=== PATIENT | male | born 1940 | race Caucasian/White ===

== ENCOUNTER 2018-01-03 19:13 | Inpatient (IN) | payer MEDICARE, BC ==
[~2018-01-03] VITALS: Ht 172.7 cm; Wt 85.2 kg
[~2018-01-03 19:13] MED LIST: ALLO100T PO; ASPI-1265 PO; ATOR80TA PO; CITA20TA11 PO; CLOP75TA35 PO; FLO0.4C PO; FURO40TA4 PO; GLIM1TAB46 PO; ISOS30TA6 PO; LABE300T PO; LOSA50TA3 PO; MULT-785 PO; NITR0.4T51 SL; OMEG1CAP13 PO; OMEG1CAP54 PO; PANT40TA4 PO
[2018-01-03] MEDS ORDERED: GLIM1TAB46 PO (20:01)
[2018-01-03] MEDS ORDERED: CITA40TA11 PO (20:01)
[2018-01-03] MEDS ORDERED: ISOS30TA6 PO (20:01)
[2018-01-03] MEDS ORDERED: dextrose 5%-1/2 normal saline 1,000 ML IV ONE (20:32)
[2018-01-03 20:43] LABS: BASOPHILS % (AUTO) 0.1 % (0-1); EOSINOPHILS % (AUTO) 0.3 % (0-6); HEMATOCRIT 32.9 % (42.0-52.0); HEMOGLOBIN 10.9 g/dl (14.0-17.9); LYMPHOCYTES # (AUTO) 0.4 X10'3 (1.1-4.8); LYMPHOCYTES % (AUTO) 2.5 % (21-51); MEAN CORPUSCULAR HGB CONC 33.1 % (33.0-36.5); MEAN CORPUSCULAR VOLUME 102.7 FL (78-98); MEAN PLATELET VOLUME 8.6 FL (7.4-10.4); MONOCYTES # (AUTO) 0.8 X10'3 (0-0.9); MONOCYTES % (AUTO) 4.7 % (2-12); NEUTROPHILS # (AUTO) 15.5 X10'3 (1.8-7.7); NEUTROPHILS % (AUTO) 92.4 % (42-75); PLATELET COUNT 173 X10'3 (140-440); RED BLOOD COUNT 3.21 X10'6 (4.70-6.10); RED CELL DISTRIBUTION WIDTH 14.9 % (11.5-14.5); WHITE BLOOD COUNT 16.8 X10'3 (4.5-11.0)
[2018-01-03 20:51] LABS: INR 1.2 INR; PARTIAL THROMBOPLASTIN TIME 33 SECONDS (22-32); PROTHROMBIN TIME 11.9 SECONDS (9.0-12.0)
[2018-01-03 21:05] LABS: ALANINE AMINOTRANSFERASE 23 U/L (12-78); ALBUMIN 2.5 G/DL (3.4-5.0); ALBUMIN/GLOBULIN RATIO 0.6 (1.1-1.5); ALKALINE PHOSPHATASE 88 IU/L (46-116); ANION GAP 8 (8-16); ASPARTATE AMINO TRANSFERASE 39 U/L (10-37); BILIRUBIN,TOTAL 0.6 MG/DL (0.1-1.0); BLOOD UREA NITROGEN 27 MG/DL (7-18); BUN/CREATININE RATIO 7.8 (5.4-32.0); CALCIUM 8.8 MG/DL (8.5-10.1); CHLORIDE 100 MMOL/L (99-107); CREATININE 3.45 MG/DL (0.60-1.10); GLUCOSE 173 MG/DL (70-104); MAGNESIUM 1.7 MG/DL (1.5-2.4); PHOSPHORUS 1.9 MG/DL (2.3-4.5); POTASSIUM 3.6 MMOL/L (3.5-5.1); SODIUM 140 MMOL/L (135-145); TOTAL CARBON DIOXIDE 32.3 MMOL/L (24-32); TOTAL PROTEIN 6.5 G/DL (6.4-8.2); eGFR 17 ML/MIN
[2018-01-03] MEDS ORDERED: acetaminophen 325mg tablet PO ONE (21:10)
[2018-01-04] VITALS (7 sets, daily range): BP systolic 111–130; BP diastolic 53–74
[2018-01-04] MEDS ORDERED: glucagon, human recombinant 1mg kit SUBCUT PRN (01:55)
[2018-01-04] MEDS ORDERED: MESSAGE TO PHARMACY PO ONE (01:55)
[2018-01-04] MEDS ORDERED: dextrose ORAL solution 15 GM/59 ML bottle PO PRN ×2 (01:55)
[2018-01-04] MEDS ORDERED: dextrose 50%-water 50ml dispensing syringe IV PRN ×2 (01:55)
[2018-01-04] MEDS ORDERED: insulin Lispro (HumaLOG) vial - multi-dose SQ SCH (01:55)
[2018-01-04] MEDS ORDERED: ceftazidime 1000mg in D5W 50ml 50 ML IV ONE (02:46)
[2018-01-04] MEDS ORDERED: cefTAZidime inj. 1 GM in normal saline 100ml IV soln 100 ML IV ONE (03:30)
[2018-01-04] MEDS ORDERED: vancomycin/NS 1 GM ADD-VANTAGE 250 ML IV ONE (03:30)
[2018-01-04 05:22] LABS: BASOPHILS % (AUTO) 0 % (0-1); EOSINOPHILS # (AUTO) 0.2 X10'3 (0-0.9); EOSINOPHILS % (AUTO) 1.3 % (0-6); HEMATOCRIT 29.4 % (42.0-52.0); HEMOGLOBIN 9.9 g/dl (14.0-17.9); LYMPHOCYTES % (AUTO) 7.4 % (21-51); MEAN CORPUSCULAR HEMOGLOBIN 33.9 PG (27.0-31.0); MEAN CORPUSCULAR HGB CONC 33.7 % (33.0-36.5); MEAN CORPUSCULAR VOLUME 100.4 FL (78-98); MEAN PLATELET VOLUME 8.5 FL (7.4-10.4); MONOCYTES # (AUTO) 1.1 X10'3 (0-0.9); MONOCYTES % (AUTO) 8.4 % (2-12); NEUTROPHILS # (AUTO) 10.8 X10'3 (1.8-7.7); NEUTROPHILS % (AUTO) 82.9 % (42-75); PLATELET COUNT 173 X10'3 (140-440); RED BLOOD COUNT 2.93 X10'6 (4.70-6.10); RED CELL DISTRIBUTION WIDTH 14.9 % (11.5-14.5)
[2018-01-04 05:45] LABS: INR 1.1 INR; PARTIAL THROMBOPLASTIN TIME 37 SECONDS (22-32); PROTHROMBIN TIME 11.8 SECONDS (9.0-12.0)
[2018-01-04 05:57] LABS: ALANINE AMINOTRANSFERASE 37 U/L (12-78); ALBUMIN 2.3 G/DL (3.4-5.0); ALBUMIN/GLOBULIN RATIO 0.6 (1.1-1.5); ALKALINE PHOSPHATASE 101 IU/L (46-116); ANION GAP 11 (8-16); ASPARTATE AMINO TRANSFERASE 184 U/L (10-37); BILIRUBIN,TOTAL 0.6 MG/DL (0.1-1.0); BLOOD UREA NITROGEN 34 MG/DL (7-18); CALCIUM 8.7 MG/DL (8.5-10.1); CHLORIDE 100 MMOL/L (99-107); CREATININE 4.24 MG/DL (0.60-1.10); GLUCOSE 172 MG/DL (70-104); MAGNESIUM 1.9 MG/DL (1.5-2.4); POTASSIUM 4.2 MMOL/L (3.5-5.1); SODIUM 143 MMOL/L (135-145); TOTAL CARBON DIOXIDE 32.2 MMOL/L (24-32); TOTAL PROTEIN 6.3 G/DL (6.4-8.2); eGFR 14 ML/MIN
[2018-01-04 06:39] LABS: HEMOGLOBIN A1C 5.3 % (4.5-6.2)
[2018-01-04] MEDS: clopidogrel 75mg tablet PO SCH (07:30)
[2018-01-04] MEDS: multivitamins, therapeutics tablet PO SCH (07:30)
[2018-01-04] MEDS: citalopram 20mg tablet PO SCH (07:31)
[2018-01-04] MEDS: isosorbide mononitrate 30mg tab.SR.24H PO SCH ×2 (07:31→07:37)
[2018-01-04] MEDS: atorvastatin 20mg tablet PO SCH (07:31)
[2018-01-04] MEDS: heparin, porcine 5000 units/ml vial SQ SCH ×2 (07:32→20:42)
[2018-01-04] MEDS: OMEGA-3/DHA/EPA/FISH OIL 1 EACH CAPSULE.DR PO SCH (08:00)
[2018-01-04] MEDS: aspirin 81mg tab.chew PO SCH (08:18)
[2018-01-04] MEDS ORDERED: acetaminophen 325mg tablet PO PRN (20:55)
[2018-01-04] MEDS ORDERED: insulin glargine (Lantus) pen - multi-dose SQ SCH (21:00)
[2018-01-04] MEDS ORDERED: allopurinol 100mg tablet PO SCH (21:00)
[2018-01-04] MEDS ORDERED: tamsulosin 0.4mg capsule PO SCH (21:00)
[2018-01-04] MEDS ORDERED: OMEGA-3/DHA/EPA/FISH OIL 1 EACH CAPSULE.DR PO SCH (21:00)
[2018-01-05 03:00] VITALS: BP 103/59
[2018-01-05 06:00] VITALS: BP 101/56
[2018-01-05 06:38] LABS: BASOPHILS % (AUTO) 0.2 % (0-1); EOSINOPHILS # (AUTO) 0.2 X10'3 (0-0.9); EOSINOPHILS % (AUTO) 1.4 % (0-6); HEMATOCRIT 30.2 % (42.0-52.0); HEMOGLOBIN 10.3 g/dl (14.0-17.9); LYMPHOCYTES % (AUTO) 8.5 % (21-51); MEAN CORPUSCULAR HEMOGLOBIN 34.7 PG (27.0-31.0); MEAN CORPUSCULAR HGB CONC 34.1 % (33.0-36.5); MEAN PLATELET VOLUME 9.1 FL (7.4-10.4); MONOCYTES # (AUTO) 0.9 X10'3 (0-0.9); MONOCYTES % (AUTO) 7.4 % (2-12); NEUTROPHILS # (AUTO) 10.1 X10'3 (1.8-7.7); NEUTROPHILS % (AUTO) 82.5 % (42-75); PLATELET COUNT 176 X10'3 (140-440); RED BLOOD COUNT 2.96 X10'6 (4.70-6.10); RED CELL DISTRIBUTION WIDTH 14.9 % (11.5-14.5); WHITE BLOOD COUNT 12.2 X10'3 (4.5-11.0)
[2018-01-05 06:53] LABS: INR 1.1 INR; PARTIAL THROMBOPLASTIN TIME 37 SECONDS (22-32); PROTHROMBIN TIME 10.9 SECONDS (9.0-12.0)
[2018-01-05 07:05] LABS: ALANINE AMINOTRANSFERASE 56 U/L (12-78); ALBUMIN 2.2 G/DL (3.4-5.0); ALBUMIN/GLOBULIN RATIO 0.6 (1.1-1.5); ALKALINE PHOSPHATASE 88 IU/L (46-116); ANION GAP 10 (8-16); ASPARTATE AMINO TRANSFERASE 191 U/L (10-37); BILIRUBIN,TOTAL 0.6 MG/DL (0.1-1.0); BLOOD UREA NITROGEN 58 MG/DL (7-18); BUN/CREATININE RATIO 10.4 (5.4-32.0); CALCIUM 8.6 MG/DL (8.5-10.1); CHLORIDE 100 MMOL/L (99-107); CREATININE 5.59 MG/DL (0.60-1.10); GLUCOSE 178 MG/DL (70-104); MAGNESIUM 1.9 MG/DL (1.5-2.4); POTASSIUM 3.8 MMOL/L (3.5-5.1); SODIUM 140 MMOL/L (135-145); TOTAL CARBON DIOXIDE 29.6 MMOL/L (24-32); TOTAL PROTEIN 6.2 G/DL (6.4-8.2); eGFR 10 ML/MIN
[2018-01-05] MEDS: heparin, porcine 5000 units/ml vial SQ SCH (07:28)
[2018-01-05] MEDS: citalopram 20mg tablet PO SCH (07:28)
[2018-01-05] MEDS: clopidogrel 75mg tablet PO SCH (07:29)
[2018-01-05] MEDS: aspirin 81mg tab.chew PO SCH (07:30)
[2018-01-05] MEDS: isosorbide mononitrate 30mg tab.SR.24H PO SCH (07:30)
[2018-01-05] MEDS: atorvastatin 20mg tablet PO SCH (07:30)
[2018-01-05] MEDS: multivitamins, therapeutics tablet PO SCH (07:30)
[2018-01-05] MEDS: OMEGA-3/DHA/EPA/FISH OIL 1 EACH CAPSULE.DR PO SCH (07:31)
[2018-01-05] MEDS ORDERED: cefTAZidime inj. 1 GM in normal saline 100ml IV soln 100 ML IV SCH (08:00)
[2018-01-05] MEDS ORDERED: LEVO500T2 PO (09:03)
== END 2018-01-05 11:45 | disposition home or self-care (01) | DRG 871 ==
LOC: ER 19:14 → ED HOLD 20:23 → EDBEDREQ 01-04 00:04 → PCU 3S 01-04 00:35
PROVIDERS: ADMIT Internal Medicine Critical Care Medicine; ATTEND Internal Medicine Critical Care Medicine
DX: A41.9 Sepsis, unspecified organism (principal); J18.1 Lobar pneumonia, unspecified organism; J96.01 Acute respiratory failure with hypoxia; I12.0 Hypertensive chronic kidney disease with stage 5 chronic kidney disease or end stage renal disease; E11.22 Type 2 diabetes mellitus with diabetic chronic kidney disease; E11.649 Type 2 diabetes mellitus with hypoglycemia without coma; N18.6 End stage renal disease; I25.10 Atherosclerotic heart disease of native coronary artery without angina pectoris; N18.9 Chronic kidney disease, unspecified; F32.9 Major depressive disorder, single episode, unspecified; Z86.73 Personal history of transient ischemic attack (TIA), and cerebral infarction without residual deficits; Z99.2 Dependence on renal dialysis; Z87.891 Personal history of nicotine dependence; Z79.82 Long term (current) use of aspirin; Z79.84 Long term (current) use of oral hypoglycemic drugs; Z79.899 Other long term (current) drug therapy; Z88.8 Allergy status to other drugs, medicaments and biological substances; Z90.49 Acquired absence of other specified parts of digestive tract
CPT/HCPCS: 36415; 71045; 80053; 82948; 83036; 83605; 83735; 83880; 84100; 84145; 84443; 85025; 85610; 85730; 87040; 87070; 87502; 87503; 93005; 99285; J0713; J1644; J1815; J3370; J7030

== ENCOUNTER 2018-01-26 09:34 | Emergency (ER) | payer MEDICARE, BC ==
[~2018-01-26] VITALS: Ht 160 cm; Wt 86.0 kg
[~2018-01-26 09:34] MED LIST changes: -CITA20TA11 PO; +CITA40TA11 PO; -FURO40TA4 PO; -LABE300T PO; -LOSA50TA3 PO; -NITR0.4T51 SL; -PANT40TA4 PO
[2018-01-26 10:41] LABS: BASOPHILS % (AUTO) 0.2 % (0-1); EOSINOPHILS # (AUTO) 0.3 X10'3 (0-0.9); EOSINOPHILS % (AUTO) 2.7 % (0-6); LYMPHOCYTES # (AUTO) 0.9 X10'3 (1.1-4.8); LYMPHOCYTES % (AUTO) 8.7 % (21-51); MEAN CORPUSCULAR HEMOGLOBIN 34.5 PG (27.0-31.0); MEAN CORPUSCULAR HGB CONC 33.4 % (33.0-36.5); MEAN CORPUSCULAR VOLUME 103.3 FL (78-98); MEAN PLATELET VOLUME 9.1 FL (7.4-10.4); MONOCYTES # (AUTO) 0.7 X10'3 (0-0.9); MONOCYTES % (AUTO) 6.9 % (2-12); NEUTROPHILS # (AUTO) 8.4 X10'3 (1.8-7.7); NEUTROPHILS % (AUTO) 81.5 % (42-75); PLATELET COUNT 222 X10'3 (140-440); RED BLOOD COUNT 3.48 X10'6 (4.70-6.10); RED CELL DISTRIBUTION WIDTH 15.2 % (11.5-14.5); WHITE BLOOD COUNT 10.3 X10'3 (4.5-11.0)
[2018-01-26 10:55] LABS: INR 1.1 INR; PARTIAL THROMBOPLASTIN TIME 26 SECONDS (22-32); PROTHROMBIN TIME 11.1 SECONDS (9.0-12.0)
[2018-01-26 11:04] LABS: ALANINE AMINOTRANSFERASE 30 U/L (12-78); ALBUMIN 3.1 G/DL (3.4-5.0); ALBUMIN/GLOBULIN RATIO 0.8 (1.1-1.5); ALKALINE PHOSPHATASE 125 IU/L (46-116); ANION GAP 9 (8-16); ASPARTATE AMINO TRANSFERASE 26 U/L (10-37); BILIRUBIN,TOTAL 1.1 MG/DL (0.1-1.0); BLOOD UREA NITROGEN 31 MG/DL (7-18); BUN/CREATININE RATIO 6.8 (5.4-32.0); CALCIUM 9.1 MG/DL (8.5-10.1); CHLORIDE 104 MMOL/L (99-107); CREATININE 4.56 MG/DL (0.60-1.10); GLUCOSE 198 MG/DL (70-104); POTASSIUM 3.7 MMOL/L (3.5-5.1); SODIUM 142 MMOL/L (135-145); TOTAL CARBON DIOXIDE 28.9 MMOL/L (24-32); TOTAL PROTEIN 7.2 G/DL (6.4-8.2); eGFR 13 ML/MIN
[2018-01-26] MEDS ORDERED: levoFLOXACIN 750MG TABLET PO ONE (12:20)
[2018-01-26] MEDS ORDERED: LEVO500T89 PO (14:09)
[2018-01-26 14:21] VITALS: BP 143/80
== END 2018-01-26 14:25 | disposition home or self-care (01) ==
LOC: ER 09:34
DX: J18.9 Pneumonia, unspecified organism (principal); I12.0 Hypertensive chronic kidney disease with stage 5 chronic kidney disease or end stage renal disease; E11.22 Type 2 diabetes mellitus with diabetic chronic kidney disease; N18.6 End stage renal disease; I25.10 Atherosclerotic heart disease of native coronary artery without angina pectoris; R00.0 Tachycardia, unspecified; Z90.49 Acquired absence of other specified parts of digestive tract; Z99.2 Dependence on renal dialysis; Z79.82 Long term (current) use of aspirin; Z88.8 Allergy status to other drugs, medicaments and biological substances; Z86.73 Personal history of transient ischemic attack (TIA), and cerebral infarction without residual deficits
CPT/HCPCS: 36415; 71045; 71250; 78582; 80053; 83605; 83880; 84484; 85025; 85379; 85610; 85730; 87040; 93005; 99285; A9539; A9540

== ENCOUNTER 2018-01-29 20:10 | Inpatient (IN) | payer MEDICARE, BC ==
[~2018-01-29] VITALS: Ht 162.6 cm; Wt 86.4 kg
[~2018-01-29 20:10] MED LIST changes: -ISOS30TA6 PO; +LEVO500T89 PO
[2018-01-29] MEDS ORDERED: dextrose 50%-water 50ml dispensing syringe IV ONE ×2 (20:50→23:00)
[2018-01-29] MEDS ORDERED: ondansetron/PF 4mg/2ml inj IV ONE (21:00)
[2018-01-29 21:42] LABS: INR 1.1 INR; PROTHROMBIN TIME 10.9 SECONDS (9.0-12.0)
[2018-01-29 21:58] LABS: ALANINE AMINOTRANSFERASE 26 U/L (12-78); ALBUMIN 2.9 G/DL (3.4-5.0); ALBUMIN/GLOBULIN RATIO 0.7 (1.1-1.5); ALKALINE PHOSPHATASE 111 IU/L (46-116); ANION GAP 11 (8-16); ASPARTATE AMINO TRANSFERASE 35 U/L (10-37); BILIRUBIN,TOTAL 0.4 MG/DL (0.1-1.0); BLOOD UREA NITROGEN 25 MG/DL (7-18); CALCIUM 8.9 MG/DL (8.5-10.1); CHLORIDE 102 MMOL/L (99-107); CREATININE 2.77 MG/DL (0.60-1.10); GLUCOSE 134 MG/DL (70-104); MAGNESIUM 1.8 MG/DL (1.5-2.4); POTASSIUM 3.7 MMOL/L (3.5-5.1); SODIUM 143 MMOL/L (135-145); TOTAL CARBON DIOXIDE 30.3 MMOL/L (24-32); TOTAL PROTEIN 7.2 G/DL (6.4-8.2); eGFR 22 ML/MIN
[2018-01-29 22:17] LABS: BASOPHILS % (AUTO) 0 % (0-1); EOSINOPHILS # (AUTO) 0.2 X10'3 (0-0.9); EOSINOPHILS % (AUTO) 2.1 % (0-6); HEMATOCRIT 33.4 % (42.0-52.0); HEMOGLOBIN 11.2 g/dl (14.0-17.9); LYMPHOCYTES # (AUTO) 0.6 X10'3 (1.1-4.8); LYMPHOCYTES % (AUTO) 8.2 % (21-51); MEAN CORPUSCULAR HGB CONC 33.6 % (33.0-36.5); MEAN CORPUSCULAR VOLUME 101.2 FL (78-98); MEAN PLATELET VOLUME 8.8 FL (7.4-10.4); MONOCYTES # (AUTO) 0.5 X10'3 (0-0.9); MONOCYTES % (AUTO) 7.5 % (2-12); NEUTROPHILS % (AUTO) 82.2 % (42-75); PLATELET COUNT 206 X10'3 (140-440); RED CELL DISTRIBUTION WIDTH 14.5 % (11.5-14.5); WHITE BLOOD COUNT 7.3 X10'3 (4.5-11.0)
[2018-01-29 22:25] LABS: CLARITY,URINE Clear (Clear); COLOR,URINE Yellow (Yellow); GLUCOSE, URINE Negative (Neg); KETONES,URINE Negative (Neg); LEUKOCYTE ESTERASE ,URINE Negative (Neg); NITRITES, URINE Negative (Neg); OCCULT BLOOD,URINE Negative (Neg); PH,URINE >=9.0 (4.8-8.0); PROTEIN,URINE 300 mg/dl (Neg); UROBILINOGEN,URINE 0.2 E.U/dL (0.2-1.0)
[2018-01-29 22:31] LABS: UA COLLECTION TYPE CLN CATCH MIDSTREAM
[2018-01-29 22:34] LABS: BACTERIA,URINE FEW /HPF (Neg); RBC,URINE 0-2 /HPF (0-2); WBC,URINE 0-4 /HPF (0-4)
[2018-01-29 22:35] LABS: SQUAMOUS EPITHELIAL CELL,UR MODERATE /LPF (FEW)
[2018-01-29 22:36] LABS: URINE AMPHETAMINE SCREEN NEGATIVE (Neg); URINE BARBITUATE SCREEN NEGATIVE (Neg); URINE BENZODIAZEPINES SCREEN NEGATIVE (Neg); URINE CANNABINOID SCREEN NEGATIVE (Neg); URINE COCAINE SCREEN NEGATIVE (Neg); URINE METHADONE SCREEN NEGATIVE (Neg); URINE OPIATE SCREEN NEGATIVE (Neg); URINE PHENCYCLIDINE SCREEN NEGATIVE (Neg)
[2018-01-30] VITALS (18 sets, daily range): BP systolic 98–148; BP diastolic 51–90
[2018-01-30] MEDS ORDERED: dextrose 50%-water 50ml dispensing syringe IV ONE (00:40)
[2018-01-30] MEDS ORDERED: glucagon, human recombinant 1mg kit SUBCUT PRN ×3 (00:45→01:35)
[2018-01-30] MEDS ORDERED: potassium Cl 20 mEq SR tablet PO PRN ×2 (00:45)
[2018-01-30] MEDS ORDERED: MESSAGE TO PHARMACY PO ONE (00:45)
[2018-01-30] MEDS ORDERED: magnesium hydroxide 30ml (MOM) UD suspension PO PRN (00:45)
[2018-01-30] MEDS ORDERED: magnesium Cl slow-release 64mg tablet PO PRN (00:45)
[2018-01-30] MEDS ORDERED: morphine 4 MG/ML inj SYRINge IV PRN ×2 (00:45)
[2018-01-30] MEDS ORDERED: Neutra Phos packet PO PRN (00:45)
[2018-01-30] MEDS ORDERED: acetaminophen 325mg tablet PO PRN ×2 (00:45)
[2018-01-30] MEDS ORDERED: ondansetron/PF 4mg/2ml inj IV PRN (00:45)
[2018-01-30] MEDS: K, MAG and/or Phos replacement - Verify level? MC SCH ×2 (00:45→12:44)
[2018-01-30] MEDS ORDERED: vancomycin inj 1,000 MG in normal saline 250ml IV soln 250 ML IV ONE (01:00)
[2018-01-30] MEDS ORDERED: dextrose 50%-water 50ml dispensing syringe IV PRN ×2 (01:20)
[2018-01-30] MEDS ORDERED: methylPREDNISolone sod succ 125mg/2ml vial IV ONE (01:35)
[2018-01-30] MEDS ORDERED: sodium chloride inj. 154 MEQ in Dextrose 10%-water IV solution 961.5 ML IV SCH ×2 (01:35→06:30)
[2018-01-30] MEDS ORDERED: cefTAZidime inj. 1 GM in normal saline 100ml IV soln 100 ML IV SCH (01:39)
[2018-01-30] MEDS ORDERED: vancomycin/NS 1 GM ADD-VANTAGE 250 ML IV ONE (01:40)
[2018-01-30] MEDS ORDERED: Dextrose 10%-water IV solution 1,000 ML ONE (01:43)
[2018-01-30] MEDS ORDERED: ceftazidime 1000mg in D5W 50ml 50 ML IV ONE (02:49)
[2018-01-30] MEDS ORDERED: vancomycin/NS 1 GM ADD-VANTAGE 250 ML IV SCH (08:00)
[2018-01-30] MEDS: aspirin 81mg tab.chew PO SCH (08:10)
[2018-01-30] MEDS: tamsulosin 0.4mg capsule PO SCH (08:11)
[2018-01-30] MEDS: OMEGA-3/DHA/EPA/FISH OIL 1 EACH CAPSULE.DR PO SCH (08:11)
[2018-01-30] MEDS: citalopram 20mg tablet PO SCH (08:11)
[2018-01-30] MEDS: multivitamins, therapeutics tablet PO SCH (08:12)
[2018-01-30] MEDS: clopidogrel 75mg tablet PO SCH (08:12)
[2018-01-30 12:35] LABS: PHOSPHORUS 2.7 MG/DL (2.3-4.5)
[2018-01-30] MEDS ORDERED: CLOP75TA15 PO (19:24)
[2018-01-30] MEDS ORDERED: allopurinol 100mg tablet PO SCH (21:00)
[2018-01-30] MEDS ORDERED: OMEGA-3/DHA/EPA/FISH OIL 1 EACH CAPSULE.DR PO SCH (21:00)
[2018-01-30] MEDS: cefTAZidime inj. 1 GM in dextrose 5%-water 50ml 50 ML IV SCH ×2 (21:00→21:33)
[2018-01-30] MEDS ORDERED: atorvastatin 20mg tablet PO SCH (21:00)
[2018-01-31 02:00] VITALS: BP 121/65
[2018-01-31] MEDS ORDERED: vancomycin/NS 1 GM ADD-VANTAGE 250 ML IV SCH (03:00)
[2018-01-31 05:54] LABS: BASOPHILS % (AUTO) 0.3 % (0-1); EOSINOPHILS # (AUTO) 0.4 X10'3 (0-0.9); EOSINOPHILS % (AUTO) 4.4 % (0-6); HEMOGLOBIN 10.1 g/dl (14.0-17.9); LYMPHOCYTES # (AUTO) 1.7 X10'3 (1.1-4.8); MEAN CORPUSCULAR HEMOGLOBIN 34.4 PG (27.0-31.0); MEAN CORPUSCULAR HGB CONC 33.7 % (33.0-36.5); MEAN PLATELET VOLUME 9.3 FL (7.4-10.4); MONOCYTES % (AUTO) 9.7 % (2-12); NEUTROPHILS % (AUTO) 68.6 % (42-75); PLATELET COUNT 190 X10'3 (140-440); RED BLOOD COUNT 2.94 X10'6 (4.70-6.10); RED CELL DISTRIBUTION WIDTH 14.5 % (11.5-14.5); WHITE BLOOD COUNT 10.3 X10'3 (4.5-11.0)
[2018-01-31 06:07] LABS: ALANINE AMINOTRANSFERASE 23 U/L (12-78); ALBUMIN 2.5 G/DL (3.4-5.0); ALBUMIN/GLOBULIN RATIO 0.7 (1.1-1.5); ALKALINE PHOSPHATASE 92 IU/L (46-116); ANION GAP 10 (8-16); ASPARTATE AMINO TRANSFERASE 22 U/L (10-37); BILIRUBIN,TOTAL 0.5 MG/DL (0.1-1.0); BLOOD UREA NITROGEN 52 MG/DL (7-18); BUN/CREATININE RATIO 11.9 (5.4-32.0); CALCIUM 8.7 MG/DL (8.5-10.1); CHLORIDE 102 MMOL/L (99-107); CREATININE 4.38 MG/DL (0.60-1.10); GLUCOSE 146 MG/DL (70-104); MAGNESIUM 1.8 MG/DL (1.5-2.4); PHOSPHORUS 3.3 MG/DL (2.3-4.5); POTASSIUM 4.1 MMOL/L (3.5-5.1); SODIUM 140 MMOL/L (135-145); TOTAL CARBON DIOXIDE 28.1 MMOL/L (24-32); eGFR 13 ML/MIN
[2018-01-31] MEDS ORDERED: glipizide 5mg tablet PO SCH (07:30)
[2018-01-31] MEDS ORDERED: pantoprazole 40mg Tablet.DR PO SCH (07:30)
[2018-01-31] MEDS ORDERED: normal saline 1000ml 250 ML IV PRN (08:00)
[2018-01-31] MEDS: K, MAG and/or Phos replacement - Verify level? MC SCH (08:00)
[2018-01-31] MEDS ORDERED: heparin 1,000unit/ml 10ml vial 10 ML IV ONE (08:00)
[2018-01-31] MEDS ORDERED: LIDOcaine 1% (10mg/ml) 2ml vial SQ ONE (08:00)
[2018-01-31] MEDS: multivitamins, therapeutics tablet PO SCH (08:06)
[2018-01-31] MEDS: aspirin 81mg tab.chew PO SCH (08:06)
[2018-01-31] MEDS: tamsulosin 0.4mg capsule PO SCH (08:06)
[2018-01-31] MEDS: OMEGA-3/DHA/EPA/FISH OIL 1 EACH CAPSULE.DR PO SCH (08:08)
[2018-01-31] MEDS: clopidogrel 75mg tablet PO SCH (08:08)
[2018-01-31] MEDS: citalopram 20mg tablet PO SCH (08:08)
[2018-01-31] MEDS ORDERED: levoFLOXACIN 500mg tablet PO SCH (11:00)
[2018-01-31 14:58] VITALS: BP 141/84
[2018-02-02] MEDS ORDERED: VANCOMYCIN LEVEL IV ONE (02:30)
== END 2018-01-31 16:10 | disposition home or self-care (01) | DRG 917 ==
LOC: ER 20:10 → CICU 2S 01-30 00:44 → CMPBEDREQ 01-30 01:34 → PCU 3S 01-30 17:15
PROVIDERS: ADMIT Internal Medicine Critical Care Medicine; ATTEND Internal Medicine Critical Care Medicine
PROC: 5A09357 Assistance with Respiratory Ventilation, Less than 24 Consecutive Hours, Continuous Positive Airway Pressure (ICD-10-PCS; 2018-01-30)
PROC: 5A1D70Z Performance of Urinary Filtration, Intermittent, Less than 6 Hours Per Day (ICD-10-PCS; principal; 2018-01-31)
DX: T38.3X1A Poisoning by insulin and oral hypoglycemic [antidiabetic] drugs, accidental (unintentional), initial encounter (principal); J18.9 Pneumonia, unspecified organism; E11.649 Type 2 diabetes mellitus with hypoglycemia without coma; I12.0 Hypertensive chronic kidney disease with stage 5 chronic kidney disease or end stage renal disease; E11.22 Type 2 diabetes mellitus with diabetic chronic kidney disease; N18.6 End stage renal disease; G47.30 Sleep apnea, unspecified; I25.10 Atherosclerotic heart disease of native coronary artery without angina pectoris; F32.9 Major depressive disorder, single episode, unspecified; R74.8 Abnormal levels of other serum enzymes; Z99.2 Dependence on renal dialysis; Z90.49 Acquired absence of other specified parts of digestive tract; Z88.8 Allergy status to other drugs, medicaments and biological substances; Z79.4 Long term (current) use of insulin; Z79.899 Other long term (current) drug therapy; Z79.02 Long term (current) use of antithrombotics/antiplatelets; Z79.82 Long term (current) use of aspirin; Z86.73 Personal history of transient ischemic attack (TIA), and cerebral infarction without residual deficits; Z87.891 Personal history of nicotine dependence; Y92.89 Other specified places as the place of occurrence of the external cause
CPT/HCPCS: 36415; 70450; 71045; 80053; 80069; 80305; 81001; 82533; 82948; 83605; 83735; 84100; 84439; 84443; 84484; 85025; 85610; 87040; 87070; 94660; 94760; 96374; 96375; 99285; A6213; G0257; J0713; J1610; J1644; J2930; J3370; J3490; J7030; J7131

== ENCOUNTER 2018-03-21 06:45 | Outpatient (CLI) | payer MEDICARE, BC ==
[~2018-03-21 06:45] MED LIST changes: +CAFFEINE CITRATE 60 MG/3 ML injection vial IV ONE; -GLIM1TAB46 PO; -LEVO500T89 PO; +regadenoson 0.4mg/5ml syringe IV ONE
[2018-03-21 07:25] LABS: TOTAL HEMOGLOBIN 11.6 G/dl (14.0-18.0)
[2018-03-21] MEDS ORDERED: albuterol 2.5 MG/3 ML nebule NEB PRN (07:40)
== END 2018-03-21 23:59 | disposition home or self-care (01) ==
LOC: RT 06:45
PROVIDERS: ATTEND Internal Medicine Pulmonary Disease
DX: J44.9 Chronic obstructive pulmonary disease, unspecified (principal); I12.0 Hypertensive chronic kidney disease with stage 5 chronic kidney disease or end stage renal disease; E11.22 Type 2 diabetes mellitus with diabetic chronic kidney disease; N18.5 Chronic kidney disease, stage 5; Z87.891 Personal history of nicotine dependence
CPT/HCPCS: 85018; 94010; 94727; 94729

== ENCOUNTER 2018-05-14 12:43 | Emergency (ER) | payer MEDICARE, BC ==
[~2018-05-14] VITALS: Ht 162.6 cm; Wt 83.1 kg
[~2018-05-14 12:43] MED LIST changes: -CAFFEINE CITRATE 60 MG/3 ML injection vial IV ONE; -regadenoson 0.4mg/5ml syringe IV ONE
[2018-05-14 12:49] VITALS: BP 125/56
[2018-05-14 13:16] LABS: CLARITY,URINE TURBID (Clear); COLOR,URINE YELLOW (Yellow); GLUCOSE, URINE NEGATIVE (Neg); KETONES,URINE NEGATIVE (Neg); LEUKOCYTE ESTERASE ,URINE LARGE (Neg); NITRITES, URINE NEGATIVE (Neg); OCCULT BLOOD,URINE LARGE (Neg); PH,URINE 6.5 (4.8-8.0); PROTEIN,URINE >=300 mg/dl (Neg); UROBILINOGEN,URINE 0.2 E.U/dL (0.2-1.0)
[2018-05-14 13:18] LABS: UA COLLECTION TYPE CLN CATCH MIDSTREAM
[2018-05-14 13:25] LABS: MUCUS STRANDS NONE SEEN /LPF (Neg); SQUAMOUS EPITHELIAL CELL,UR FEW /LPF (FEW); WBC,URINE TNTC /HPF (0-4)
[2018-05-14 13:26] LABS: BACTERIA,URINE 4+ /HPF (Neg); RBC,URINE 0-2 /HPF (0-2); TRANSITIONAL EPI CELLS,URINE FEW /HPF
[2018-05-14] MEDS ORDERED: NYST15OI14 TP (13:54)
[2018-05-14] MEDS ORDERED: CEPH500C5 PO (13:54)
== END 2018-05-14 14:14 | disposition home or self-care (01) ==
LOC: ER 12:43
DX: N48.89 Other specified disorders of penis (principal); N39.0 Urinary tract infection, site not specified; B37.49 Other urogenital candidiasis; I25.10 Atherosclerotic heart disease of native coronary artery without angina pectoris; I12.9 Hypertensive chronic kidney disease with stage 1 through stage 4 chronic kidney disease, or unspecified chronic kidney disease; E11.22 Type 2 diabetes mellitus with diabetic chronic kidney disease; N18.9 Chronic kidney disease, unspecified; Z79.82 Long term (current) use of aspirin; Z99.2 Dependence on renal dialysis; Z79.899 Other long term (current) drug therapy; Z88.8 Allergy status to other drugs, medicaments and biological substances; Z86.73 Personal history of transient ischemic attack (TIA), and cerebral infarction without residual deficits; Z90.49 Acquired absence of other specified parts of digestive tract
CPT/HCPCS: 81001; 87077; 87088; 87186; 99284

== ENCOUNTER 2018-07-11 06:43 | Day surgery (SDC) | payer MEDICARE, BC ==
[~2018-07-11] VITALS: Ht 162.6 cm; Wt 81.7 kg
[~2018-07-11 06:43] MED LIST changes: +CLOP75TA15 PO; -CLOP75TA35 PO; +GLIM1TAB46 PO
[2018-07-11 07:11] VITALS: BP 106/57
[2018-07-11] MEDS ORDERED: normal saline 1000ml 1,000 ML IV SCH (07:15)
[2018-07-11] MEDS ORDERED: heparin 1,000 UNITS/NS 500ml 500 ML ICATH ONE (08:05)
[2018-07-11] MEDS ORDERED: midazolam 2 mg/2 ml injection IV PRN (08:05)
[2018-07-11] MEDS ORDERED: fentaNYL/PF 50MCG/1 ML 2ML syringe IV PRN (08:05)
[2018-07-11] MEDS ORDERED: LIDOcaine 1%/PF 5ML 10 MG/ML VIAL SQ ONE (08:05)
[2018-07-11] MEDS ORDERED: iohexol 300mg/ml 100ml inj. ONE (08:34)
[2018-07-11] MEDS ORDERED: LIDOcaine 1%/PF 5ML 10 MG/ML VIAL ONE (08:34)
[2018-07-11] MEDS ORDERED: midazolam 2 mg/2 ml injection ONE (08:47)
[2018-07-11] MEDS ORDERED: fentaNYL/PF 50MCG/1 ML 2ML syringe ONE (08:47)
[2018-07-11] MEDS ORDERED: heparin 1,000 UNITS/NS 500ml 500 ML ONE (08:47)
[2018-07-11 09:45] VITALS: BP 114/63
[2018-07-11 10:00] VITALS: BP 106/57
[2018-07-11 10:15] VITALS: BP 106/58
[2018-07-11 10:30] VITALS: BP 94/51
[2018-07-11 11:00] VITALS: BP 91/43
== END 2018-07-11 11:20 | disposition home or self-care (01) ==
LOC: SSTAY O 06:43
PROVIDERS: ATTEND Radiology Diagnostic Radiology
DX: T82.858A Stenosis of other vascular prosthetic devices, implants and grafts, initial encounter (principal); Y83.2 Surgical operation with anastomosis, bypass or graft as the cause of abnormal reaction of the patient, or of later complication, without mention of misadventure at the time of the procedure; Y92.89 Other specified places as the place of occurrence of the external cause; I13.2 Hypertensive heart and chronic kidney disease with heart failure and with stage 5 chronic kidney disease, or end stage renal disease; N18.6 End stage renal disease; I50.32 Chronic diastolic (congestive) heart failure; E11.22 Type 2 diabetes mellitus with diabetic chronic kidney disease; E11.42 Type 2 diabetes mellitus with diabetic polyneuropathy; I25.810 Atherosclerosis of coronary artery bypass graft(s) without angina pectoris; G47.33 Obstructive sleep apnea (adult) (pediatric); E78.5 Hyperlipidemia, unspecified; F32.9 Major depressive disorder, single episode, unspecified; N40.0 Benign prostatic hyperplasia without lower urinary tract symptoms; J44.9 Chronic obstructive pulmonary disease, unspecified; E11.51 Type 2 diabetes mellitus with diabetic peripheral angiopathy without gangrene; Z79.02 Long term (current) use of antithrombotics/antiplatelets; Z95.1 Presence of aortocoronary bypass graft; Z90.49 Acquired absence of other specified parts of digestive tract; Z95.5 Presence of coronary angioplasty implant and graft; Z98.41 Cataract extraction status, right eye; Z98.42 Cataract extraction status, left eye; Z79.01 Long term (current) use of anticoagulants; Z79.82 Long term (current) use of aspirin; Z91.048 Other nonmedicinal substance allergy status; Z86.73 Personal history of transient ischemic attack (TIA), and cerebral infarction without residual deficits; Z86.74 Personal history of sudden cardiac arrest; Z87.891 Personal history of nicotine dependence; Z99.2 Dependence on renal dialysis; Z72.89 Other problems related to lifestyle; Z87.440 Personal history of urinary (tract) infections; Z79.84 Long term (current) use of oral hypoglycemic drugs; Z98.890 Other specified postprocedural states; Z79.899 Other long term (current) drug therapy; Z88.8 Allergy status to other drugs, medicaments and biological substances; Z82.49 Family history of ischemic heart disease and other diseases of the circulatory system
CPT/HCPCS: 36902; 99152; 99153; C1725; C1769; C1894; J1644; J2001; J2250; J3010; Q9967; A4620; J7030

== ENCOUNTER 2019-10-30 10:34 | Emergency (ER) | payer MEDICARE, BC ==
[~2019-10-30] VITALS: Ht 162.6 cm; Wt 88.6 kg
[~2019-10-30 10:34] MED LIST changes: +GLIM1TAB3 PO; -GLIM1TAB46 PO
[2019-10-30 10:44] VITALS: BP 168/84
[2019-10-30] MEDS ORDERED: traMADol 50MG tablet PO ONE (12:10)
[2019-10-30] MEDS ORDERED: TRAM50TA2 PO (12:30)
[2019-10-30] MEDS ORDERED: ALLO300T2 PO (17:19)
[2019-10-30] MEDS ORDERED: PHO667C PO (17:21)
== END 2019-10-30 13:00 | disposition home or self-care (01) ==
LOC: ER 10:35
DX: S83.92XA Sprain of unspecified site of left knee, initial encounter (principal); M25.532 Pain in left wrist; I25.10 Atherosclerotic heart disease of native coronary artery without angina pectoris; I12.9 Hypertensive chronic kidney disease with stage 1 through stage 4 chronic kidney disease, or unspecified chronic kidney disease; E11.22 Type 2 diabetes mellitus with diabetic chronic kidney disease; N18.9 Chronic kidney disease, unspecified; Z99.2 Dependence on renal dialysis; Z86.73 Personal history of transient ischemic attack (TIA), and cerebral infarction without residual deficits; Z90.49 Acquired absence of other specified parts of digestive tract; Z88.8 Allergy status to other drugs, medicaments and biological substances; Z79.82 Long term (current) use of aspirin; Z79.899 Other long term (current) drug therapy; W18.30XA Fall on same level, unspecified, initial encounter; Y93.E1 Activity, personal bathing and showering; Y92.89 Other specified places as the place of occurrence of the external cause; Y99.9 Unspecified external cause status
CPT/HCPCS: 29125; 73110; 73564; 99284

== ENCOUNTER 2019-10-30 15:32 | Inpatient (IN) | payer MEDICARE, BC ==
[~2019-10-30] VITALS: Ht 160 cm; Wt 88.6 kg
[~2019-10-30 15:32] MED LIST changes: +TRAM50TA2 PO
--- NOTE | 2019-10-30 15:54 | NUR ---
pt has fistula on left arm. no labs/iv/bp on left
[2019-10-30] MEDS ORDERED: ondansetron/PF 4mg/2ml inj IV PRN (16:00)
[2019-10-30] MEDS ORDERED: acetaminophen 325mg tablet PO PRN (16:00)
[2019-10-30 16:24] LABS: BASOPHILS % (AUTO) 0.1 % (0-1); EOSINOPHILS % (AUTO) 0.3 % (0-6); HEMATOCRIT 32.4 % (42.0-52.0); HEMOGLOBIN 10.9 g/dl (14.0-17.9); LYMPHOCYTES % (AUTO) 7.4 % (21-51); MEAN CORPUSCULAR HEMOGLOBIN 34.1 PG (27.0-31.0); MEAN CORPUSCULAR HGB CONC 33.5 g/dL (33.0-36.5); MEAN CORPUSCULAR VOLUME 101.8 FL (78-98); MEAN PLATELET VOLUME 7.8 FL (7.4-10.4); MONOCYTES # (AUTO) 1.2 X10'3 (0-0.9); MONOCYTES % (AUTO) 9.5 % (2-12); NEUTROPHILS # (AUTO) 10.8 X10'3 (1.8-7.7); NEUTROPHILS % (AUTO) 82.7 % (42-75); PLATELET COUNT 280 X10'3 (140-440); RED BLOOD COUNT 3.19 X10'6 (4.70-6.10); RED CELL DISTRIBUTION WIDTH 14.5 % (11.5-14.5); WHITE BLOOD COUNT 13.1 X10'3 (4.5-11.0)
[2019-10-30 16:36] LABS: ALANINE AMINOTRANSFERASE 33 U/L (12-78); ALBUMIN 2.8 G/DL (3.4-5.0); ALBUMIN/GLOBULIN RATIO 0.6 (1.1-1.5); ALKALINE PHOSPHATASE 78 IU/L (46-116); ANION GAP 20 (8-16); ASPARTATE AMINO TRANSFERASE 27 U/L (10-37); BILIRUBIN,TOTAL 0.5 MG/DL (0.1-1.0); BLOOD UREA NITROGEN 120 MG/DL (7-18); BUN/CREATININE RATIO 11.7 (5.4-32.0); CALCIUM 9.5 MG/DL (8.5-10.1); CHLORIDE 96 MMOL/L (99-107); CREATININE 10.28 MG/DL (0.60-1.10); GLUCOSE 74 MG/DL (70-104); POTASSIUM 5.3 MMOL/L (3.5-5.1); SODIUM 137 MMOL/L (135-145); TOTAL CARBON DIOXIDE 20.6 MMOL/L (24-32); TOTAL PROTEIN 7.8 G/DL (6.4-8.2); eGFR 5 ML/MIN
[2019-10-30] MEDS ORDERED: ALLO300T2 PO (17:19)
[2019-10-30] MEDS ORDERED: PHO667C PO (17:21)
--- NOTE | 2019-10-30 18:21 | NUR ---
PT OFF THE FLOOR TO MRI
--- NOTE | 2019-10-30 19:29 | NUR ---
pina [phone] cell mellissa [phone] brother pamela
--- NOTE | 2019-10-30 19:32 | NUR ---
pt back from mri
[2019-10-30 21:05] VITALS: BP 137/59
[2019-10-30] MEDS: docusate sod 100mg capsule PO SCH (21:22)
[2019-10-30] MEDS: HYDROcodone/acetaminophen 5mg/325mg tablet PO PRN (21:23)
[2019-10-30] MEDS: heparin, porcine 5000 units/ml vial SQ SCH (21:24)
[2019-10-31 00:28] VITALS: BP 135/70
[2019-10-31 06:20] LABS: BASOPHILS % (AUTO) 0.3 % (0-1); EOSINOPHILS # (AUTO) 0.1 X10'3 (0-0.9); EOSINOPHILS % (AUTO) 0.8 % (0-6); HEMATOCRIT 30.2 % (42.0-52.0); HEMOGLOBIN 10.1 g/dl (14.0-17.9); LYMPHOCYTES # (AUTO) 0.9 X10'3 (1.1-4.8); LYMPHOCYTES % (AUTO) 8.7 % (21-51); MEAN CORPUSCULAR HGB CONC 33.4 g/dL (33.0-36.5); MEAN CORPUSCULAR VOLUME 101.8 FL (78-98); MEAN PLATELET VOLUME 8.2 FL (7.4-10.4); MONOCYTES # (AUTO) 0.9 X10'3 (0-0.9); MONOCYTES % (AUTO) 9.2 % (2-12); NEUTROPHILS # (AUTO) 8.1 X10'3 (1.8-7.7); PLATELET COUNT 257 X10'3 (140-440); RED BLOOD COUNT 2.97 X10'6 (4.70-6.10); RED CELL DISTRIBUTION WIDTH 15.1 % (11.5-14.5)
[2019-10-31 06:46] LABS: ALANINE AMINOTRANSFERASE 33 U/L (12-78); ALBUMIN 2.5 G/DL (3.4-5.0); ALBUMIN/GLOBULIN RATIO 0.5 (1.1-1.5); ALKALINE PHOSPHATASE 71 IU/L (46-116); ANION GAP 23 (8-16); ASPARTATE AMINO TRANSFERASE 31 U/L (10-37); BILIRUBIN,TOTAL 0.4 MG/DL (0.1-1.0); BLOOD UREA NITROGEN 127 MG/DL (7-18); BUN/CREATININE RATIO 11.4 (5.4-32.0); CALCIUM 8.9 MG/DL (8.5-10.1); CHLORIDE 98 MMOL/L (99-107); CREATININE 11.11 MG/DL (0.60-1.10); GLUCOSE 51 MG/DL (70-104); MAGNESIUM 2.3 MG/DL (1.5-2.4); PHOSPHORUS 8.9 MG/DL (2.3-4.5); POTASSIUM 4.8 MMOL/L (3.5-5.1); SODIUM 141 MMOL/L (135-145); TOTAL CARBON DIOXIDE 19.7 MMOL/L (24-32); TOTAL PROTEIN 7.1 G/DL (6.4-8.2); eGFR 4 ML/MIN
--- NOTE | 2019-10-31 06:54 | NUR ---
Problems reprioritized. Patient report given, questions answered & plan of care reviewed with Natalie SHAH. Pt laying on his back being evaluated by [facility] [employer] [facility] Patricia Blanco. No signs of distres.
--- NOTE | 2019-10-31 07:07 | NUR ---
Patient in room [facility] 347. I have received report from Nubia SHAH and had the opportunity to ask questions and assume patient care.
[2019-10-31 09:26] VITALS: BP 132/61
[2019-10-31] MEDS: docusate sod 100mg capsule PO SCH ×2 (09:30→20:30)
[2019-10-31] MEDS: heparin, porcine 5000 units/ml vial SQ SCH ×2 (09:31→20:17)
[2019-10-31] MEDS: HYDROcodone/acetaminophen 5mg/325mg tablet PO PRN ×2 (09:41→17:09)
[2019-10-31] MEDS ORDERED: normal saline 1000ml 250 ML IV PRN (10:04)
[2019-10-31] MEDS ORDERED: LIDOcaine 1% (10mg/ml) 2ml vial SQ ONE (10:05)
[2019-10-31] MEDS ORDERED: heparin 1,000 units/ml 10ml inj IV ONE (10:05)
[2019-10-31] MEDS ORDERED: epoetin 20,000 units/ml inj IV ONE (10:05)
[2019-10-31] MEDS ORDERED: glimepiride 1 MG tablet PO SCH (10:10)
--- NOTE | 2019-10-31 10:17 | NUR ---
Blood sugar check while patient was eating was 41 pt denies any symptoms. Recheck at 0940 BS 119.
[2019-10-31] MEDS ORDERED: OMEGA-3/DHA/EPA/FISH OIL 1 EACH CAPSULE.DR PO SCH (10:20)
[2019-10-31] MEDS: aspirin 81mg tab.chew PO SCH (10:54)
[2019-10-31] MEDS: allopurinol 300 MG tablet PO SCH (10:54)
[2019-10-31] MEDS: multivitamins, therapeutics tablet PO SCH (10:57)
[2019-10-31] MEDS: tamsulosin 0.4mg capsule PO SCH (10:57)
[2019-10-31 11:52] VITALS: BP 121/56
[2019-10-31] MEDS: calcium acetate 667mg (PhosLO) capsule PO SCH ×2 (12:57→17:09)
[2019-10-31] MEDS: clopidogrel 75mg tablet PO SCH (13:25)
[2019-10-31] MEDS ORDERED: glucagon, human recombinant 1mg kit SUBCUT PRN (16:50)
[2019-10-31] MEDS ORDERED: dextrose 50%-water 50ml dispensing syringe IV PRN ×2 (16:50)
[2019-10-31] MEDS ORDERED: dextrose ORAL solution 15 GM/59 ML bottle PO PRN ×2 (16:50)
[2019-10-31 18:00] VITALS: BP 116/57
[2019-10-31] MEDS: ibuprofen tablet 400 MG TABLET PO SCH (18:45)
--- NOTE | 2019-10-31 19:03 | NUR ---
Problems reprioritized. Patient report given, questions answered & plan of care reviewed with Keon SHAH.
[2019-10-31] MEDS: atorvastatin 20mg tablet PO SCH (20:15)
[2019-10-31] MEDS: OMEGA-3/DHA/EPA/FISH OIL 1 EACH CAPSULE.DR PO SCH (20:16)
[2019-11-01] VITALS: BP 110/74
[2019-11-01 06:00] LABS: BASOPHILS % (AUTO) 0.3 % (0-1); EOSINOPHILS # (AUTO) 0.1 X10'3 (0-0.9); EOSINOPHILS % (AUTO) 1.4 % (0-6); HEMATOCRIT 30.1 % (42.0-52.0); HEMOGLOBIN 10.4 g/dl (14.0-17.9); LYMPHOCYTES % (AUTO) 10.9 % (21-51); MEAN CORPUSCULAR HEMOGLOBIN 34.5 PG (27.0-31.0); MEAN CORPUSCULAR HGB CONC 34.4 g/dL (33.0-36.5); MEAN CORPUSCULAR VOLUME 100.2 FL (78-98); MEAN PLATELET VOLUME 7.8 FL (7.4-10.4); MONOCYTES # (AUTO) 1.2 X10'3 (0-0.9); NEUTROPHILS # (AUTO) 6.7 X10'3 (1.8-7.7); NEUTROPHILS % (AUTO) 74.4 % (42-75); PLATELET COUNT 255 X10'3 (140-440); RED BLOOD COUNT 3.01 X10'6 (4.70-6.10); RED CELL DISTRIBUTION WIDTH 14.6 % (11.5-14.5)
[2019-11-01 06:23] LABS: ALANINE AMINOTRANSFERASE 33 U/L (12-78); ALBUMIN 2.5 G/DL (3.4-5.0); ALBUMIN/GLOBULIN RATIO 0.5 (1.1-1.5); ALKALINE PHOSPHATASE 71 IU/L (46-116); ANION GAP 11 (8-16); ASPARTATE AMINO TRANSFERASE 29 U/L (10-37); BILIRUBIN,TOTAL 0.4 MG/DL (0.1-1.0); BLOOD UREA NITROGEN 57 MG/DL (7-18); BUN/CREATININE RATIO 8.9 (5.4-32.0); CALCIUM 9.2 MG/DL (8.5-10.1); CHLORIDE 100 MMOL/L (99-107); CREATININE 6.37 MG/DL (0.60-1.10); GLUCOSE 92 MG/DL (70-104); MAGNESIUM 2.1 MG/DL (1.5-2.4); PHOSPHORUS 5.4 MG/DL (2.3-4.5); POTASSIUM 4.6 MMOL/L (3.5-5.1); SODIUM 139 MMOL/L (135-145); TOTAL CARBON DIOXIDE 28.3 MMOL/L (24-32); TOTAL PROTEIN 7.1 G/DL (6.4-8.2); eGFR 8 ML/MIN
--- NOTE | 2019-11-01 06:43 | NUR ---
Patient in room [facility] 347. I have received report from Keon SHAH and had the opportunity to ask questions and assume patient care.
[2019-11-01] MEDS: tamsulosin 0.4mg capsule PO SCH (07:49)
[2019-11-01] MEDS: ibuprofen tablet 400 MG TABLET PO SCH ×3 (07:49→16:57)
[2019-11-01] MEDS: calcium acetate 667mg (PhosLO) capsule PO SCH ×3 (07:50→16:57)
[2019-11-01] MEDS: docusate sod 100mg capsule PO SCH ×3 (07:50→20:58)
[2019-11-01] MEDS: multivitamins, therapeutics tablet PO SCH (07:50)
[2019-11-01] MEDS: clopidogrel 75mg tablet PO SCH (07:50)
[2019-11-01] MEDS: citalopram 20mg tablet PO SCH (07:50)
[2019-11-01] MEDS: aspirin 81mg tab.chew PO SCH (07:50)
[2019-11-01] MEDS: glimepiride 1 MG tablet PO SCH (07:58)
[2019-11-01] MEDS: OMEGA-3/DHA/EPA/FISH OIL 1 EACH CAPSULE.DR PO SCH ×2 (07:59→20:58)
[2019-11-01] MEDS: heparin, porcine 5000 units/ml vial SQ SCH ×2 (08:00→20:59)
[2019-11-01] MEDS: allopurinol 300 MG tablet PO SCH (08:00)
[2019-11-01 08:14] VITALS: BP 104/43
[2019-11-01 11:21] VITALS: BP 93/46
[2019-11-01 18:00] VITALS: BP 127/81
--- NOTE | 2019-11-01 19:03 | NUR ---
Problems reprioritized. Patient report given, questions answered & plan of care reviewed with Keon SHAH.
[2019-11-01] MEDS: atorvastatin 20mg tablet PO SCH (20:58)
[2019-11-02] VITALS: BP 134/71
[2019-11-02 06:19] LABS: BASOPHILS % (AUTO) 0.3 % (0-1); EOSINOPHILS # (AUTO) 0.1 X10'3 (0-0.9); EOSINOPHILS % (AUTO) 1.5 % (0-6); HEMATOCRIT 30.9 % (42.0-52.0); HEMOGLOBIN 10.6 g/dl (14.0-17.9); LYMPHOCYTES # (AUTO) 1.2 X10'3 (1.1-4.8); LYMPHOCYTES % (AUTO) 12.9 % (21-51); MEAN CORPUSCULAR HEMOGLOBIN 34.5 PG (27.0-31.0); MEAN CORPUSCULAR HGB CONC 34.1 g/dL (33.0-36.5); MONOCYTES # (AUTO) 1.2 X10'3 (0-0.9); MONOCYTES % (AUTO) 12.3 % (2-12); PLATELET COUNT 286 X10'3 (140-440); RED BLOOD COUNT 3.06 X10'6 (4.70-6.10); RED CELL DISTRIBUTION WIDTH 14.9 % (11.5-14.5); WHITE BLOOD COUNT 9.6 X10'3 (4.5-11.0)
[2019-11-02 06:43] LABS: ALANINE AMINOTRANSFERASE 34 U/L (12-78); ALBUMIN 2.4 G/DL (3.4-5.0); ALBUMIN/GLOBULIN RATIO 0.5 (1.1-1.5); ALKALINE PHOSPHATASE 72 IU/L (46-116); ANION GAP 18 (8-16); ASPARTATE AMINO TRANSFERASE 27 U/L (10-37); BILIRUBIN,TOTAL 0.4 MG/DL (0.1-1.0); BLOOD UREA NITROGEN 83 MG/DL (7-18); BUN/CREATININE RATIO 10.5 (5.4-32.0); CHLORIDE 98 MMOL/L (99-107); GLUCOSE 80 MG/DL (70-104); PHOSPHORUS 6.1 MG/DL (2.3-4.5); POTASSIUM 4.8 MMOL/L (3.5-5.1); SODIUM 139 MMOL/L (135-145); TOTAL CARBON DIOXIDE 22.9 MMOL/L (24-32); TOTAL PROTEIN 7.1 G/DL (6.4-8.2); eGFR 7 ML/MIN
--- NOTE | 2019-11-02 06:53 | NUR ---
Patient in room [facility] 347. I have received report from Keon SHAH and had the opportunity to ask questions and assume patient care.
[2019-11-02] MEDS: calcium acetate 667mg (PhosLO) capsule PO SCH ×3 (07:58→17:25)
[2019-11-02] MEDS: allopurinol 300 MG tablet PO SCH (07:59)
[2019-11-02] MEDS: clopidogrel 75mg tablet PO SCH (07:59)
[2019-11-02] MEDS: citalopram 20mg tablet PO SCH (07:59)
[2019-11-02] MEDS: multivitamins, therapeutics tablet PO SCH (07:59)
[2019-11-02] MEDS: aspirin 81mg tab.chew PO SCH (07:59)
[2019-11-02] MEDS: OMEGA-3/DHA/EPA/FISH OIL 1 EACH CAPSULE.DR PO SCH (07:59)
[2019-11-02] MEDS: docusate sod 100mg capsule PO SCH (08:00)
[2019-11-02] MEDS: glimepiride 1 MG tablet PO SCH (08:00)
[2019-11-02] MEDS: tamsulosin 0.4mg capsule PO SCH (08:00)
[2019-11-02] MEDS: ibuprofen tablet 400 MG TABLET PO SCH ×3 (08:00→17:25)
[2019-11-02] MEDS: heparin, porcine 5000 units/ml vial SQ SCH (08:01)
[2019-11-02 08:30] VITALS: BP 144/63
[2019-11-02] MEDS ORDERED: heparin 1,000 units/ml 10ml inj IV ONE (09:50)
[2019-11-02] MEDS ORDERED: epoetin 20,000 units/ml inj IV ONE (09:50)
[2019-11-02] MEDS ORDERED: LIDOcaine 1% (10mg/ml) 2ml vial SQ ONE (09:50)
[2019-11-02] MEDS ORDERED: normal saline 1000ml 250 ML IV PRN (09:50)
[2019-11-02] MEDS ORDERED: HYDR-4383 PO (11:31)
[2019-11-02] MEDS ORDERED: IBUP-1984 PO (11:31)
--- NOTE | 2019-11-02 18:30 | NUR ---
Patient D/C'd home in stable conditions after dialysis treatment was done. Discharge and medication instructions given. IV removed. patient taken to the lobby on wheel chair. Left the hospital accompanied by via private vehicle.
--- NOTE | 2019-11-06 12:11 | NUR ---
Case Management DC follow up: Spoke to pt via telephone. pt states he is doing ok. His knee is about 1-2/10. he is having trouble w/L ankle r/t previous fall. He has only taken 1 Rx Murdock 5mg tab, does not feel he needs it anymore. pt has appt [facility] r/t L ankle, [facility] technical [facility] 11/13/2019, labs 11/07/2019, saw PCP 11/05/2019. pt understands what medications he is taking and what they are for. Dialysis is Tues/Th/Sat and he says he feel good.
== END 2019-11-02 18:00 | disposition home or self-care (01) | DRG 562 ==
LOC: ER 15:32 → ED HOLD 17:03 → SUR 3N 20:45
PROVIDERS: ADMIT Internal Medicine Critical Care Medicine; ATTEND Internal Medicine Critical Care Medicine
PROC: 5A1D70Z Performance of Urinary Filtration, Intermittent, Less than 6 Hours Per Day (ICD-10-PCS; 2019-10-31)
PROC: 5A1D70Z Performance of Urinary Filtration, Intermittent, Less than 6 Hours Per Day (ICD-10-PCS; principal; 2019-11-02)
DX: S83.242A Other tear of medial meniscus, current injury, left knee, initial encounter (principal); N18.6 End stage renal disease; I12.0 Hypertensive chronic kidney disease with stage 5 chronic kidney disease or end stage renal disease; E11.22 Type 2 diabetes mellitus with diabetic chronic kidney disease; E11.51 Type 2 diabetes mellitus with diabetic peripheral angiopathy without gangrene; G89.29 Other chronic pain; E11.649 Type 2 diabetes mellitus with hypoglycemia without coma; F32.9 Major depressive disorder, single episode, unspecified; W18.39XA Other fall on same level, initial encounter; M25.532 Pain in left wrist; I25.10 Atherosclerotic heart disease of native coronary artery without angina pectoris; Z86.73 Personal history of transient ischemic attack (TIA), and cerebral infarction without residual deficits; Z87.891 Personal history of nicotine dependence; Z95.1 Presence of aortocoronary bypass graft; Z99.2 Dependence on renal dialysis; Z88.8 Allergy status to other drugs, medicaments and biological substances; Z90.49 Acquired absence of other specified parts of digestive tract; Y93.89 Activity, other specified; Y92.89 Other specified places as the place of occurrence of the external cause; Y99.8 Other external cause status; Z79.899 Other long term (current) drug therapy; Z79.82 Long term (current) use of aspirin
CPT/HCPCS: 36415; 73721; 80053; 82948; 83036; 83735; 84100; 85025; 87081; 97110; 97112; 97116; 97161; 97530; 99285; G0257; G0378; J1644; J2001; J2150; Q4081

== ENCOUNTER 2020-01-17 13:11 | Emergency (ER) | payer MEDICARE, BC ==
[~2020-01-17] VITALS: Ht 162.6 cm; Wt 87.3 kg
[~2020-01-17 13:11] MED LIST changes: -ALLO100T PO; +ALLO300T2 PO; +AMA1T PO; -GLIM1TAB3 PO; +HYDR-4383 PO; +IBUP-1984 PO; +PHO667C PO; -TRAM50TA2 PO
[2020-01-17] MEDS ORDERED: BENZ-38 PO (14:21)
[2020-01-17] MEDS ORDERED: ALBU8.5H8 IH (14:21)
[2020-01-17] MEDS ORDERED: AZIT250T29 PO (14:23)
[2020-01-17] MEDS ORDERED: PRED20TA PO (14:23)
[2020-01-17] MEDS ORDERED: AMOX-580 PO (14:27)
[2020-01-17 14:59] VITALS: BP 116/50
[2020-01-17] MEDS ORDERED: TAM75C PO (15:58)
--- NOTE | 2020-01-17 16:12 | NUR ---
Called patients listed number and left a voice mail to call back ER for information regarding positive Influenza A.
--- NOTE | 2020-01-17 16:36 | NUR ---
Patients called back and was informed regarding results of flu. Patients educated that I will call in prescription for Tamiflu 75 mg PO Q12H total 10 CAP to patient requested pharmacy [facility] in [place]. Prescription called in at [phone].
== END 2020-01-17 15:16 | disposition home or self-care (01) ==
LOC: ER 13:14
DX: J98.01 Acute bronchospasm (principal); R33.9 Retention of urine, unspecified; J10.1 Influenza due to other identified influenza virus with other respiratory manifestations; F32.9 Major depressive disorder, single episode, unspecified; I25.10 Atherosclerotic heart disease of native coronary artery without angina pectoris; I13.10 Hypertensive heart and chronic kidney disease without heart failure, with stage 1 through stage 4 chronic kidney disease, or unspecified chronic kidney disease; E11.22 Type 2 diabetes mellitus with diabetic chronic kidney disease; N18.9 Chronic kidney disease, unspecified; Z88.8 Allergy status to other drugs, medicaments and biological substances; Z79.899 Other long term (current) drug therapy; Z99.2 Dependence on renal dialysis; Z90.49 Acquired absence of other specified parts of digestive tract
CPT/HCPCS: 36415; 71045; 87502; 87503; 87635; 99284

== ENCOUNTER 2020-04-23 08:31 | Day surgery (SDC) | payer MEDICARE, BC ==
[~2020-04-23] VITALS: Ht 162.6 cm; Wt 88.2 kg
[~2020-04-23 08:31] MED LIST changes: +ALBU8.5H8 IH
[2020-04-23] MEDS ORDERED: normal saline 1000ml 1,000 ML IV SCH (09:00)
[2020-04-23 09:14] VITALS: BP 129/66
[2020-04-23 09:33] LABS: BASOPHILS % (AUTO) 0.5 % (0-1); EOSINOPHILS # (AUTO) 0.4 X10'3 (0-0.9); EOSINOPHILS % (AUTO) 4.9 % (0-6); HEMATOCRIT 36.8 % (42.0-52.0); HEMOGLOBIN 12.1 g/dl (14.0-17.9); LYMPHOCYTES # (AUTO) 1.5 X10'3 (1.1-4.8); LYMPHOCYTES % (AUTO) 16.5 % (21-51); MEAN CORPUSCULAR HEMOGLOBIN 33.4 PG (27.0-31.0); MEAN CORPUSCULAR VOLUME 101.4 FL (78-98); MEAN PLATELET VOLUME 8.4 FL (7.4-10.4); MONOCYTES # (AUTO) 0.9 X10'3 (0-0.9); MONOCYTES % (AUTO) 10.2 % (2-12); NEUTROPHILS # (AUTO) 6.1 X10'3 (1.8-7.7); NEUTROPHILS % (AUTO) 67.9 % (42-75); PLATELET COUNT 196 X10'3 (140-440); RED BLOOD COUNT 3.63 X10'6 (4.70-6.10); RED CELL DISTRIBUTION WIDTH 15.6 % (11.5-14.5)
[2020-04-23] MEDS ORDERED: iohexol 300mg/ml 100ml inj. ONE (09:35)
[2020-04-23] MEDS ORDERED: LIDOcaine 1%/PF 5ML 10 MG/ML VIAL ONE (09:35)
[2020-04-23 09:43] LABS: ALBUMIN 3.2 G/DL (3.4-5.0); ANION GAP 12 (8-16); BLOOD UREA NITROGEN 79 MG/DL (7-18); BUN/CREATININE RATIO 9.9 (5.4-32.0); CALCIUM 9.3 MG/DL (8.5-10.1); CHLORIDE 100 MMOL/L (99-107); CREATININE 8.01 MG/DL (0.60-1.10); GLUCOSE 127 MG/DL (70-104); POTASSIUM 4.7 MMOL/L (3.5-5.1); SODIUM 140 MMOL/L (135-145); TOTAL CARBON DIOXIDE 28.5 MMOL/L (24-32); eGFR 7 ML/MIN
[2020-04-23] MEDS ORDERED: ACET-890 PO (10:07)
[2020-04-23] MEDS ORDERED: naloxone 0.4 mg/ml inj ONE (10:36)
[2020-04-23] MEDS ORDERED: flumazenil 0.1 mg/ml inj. IV ONE (10:36)
[2020-04-23] MEDS ORDERED: fentaNYL/PF 50MCG/1 ML 2ML syringe ONE (10:37)
[2020-04-23] MEDS ORDERED: midazolam 2 mg/2 ml injection ONE (10:37)
[2020-04-23] MEDS ORDERED: heparin 1,000 UNITS/NS 500ml 500 ML ONE (10:38)
[2020-04-23 12:06] VITALS: BP 136/63
[2020-04-23 12:22] VITALS: BP 119/61
[2020-04-23 12:37] VITALS: BP 117/64
[2020-04-23 12:53] VITALS: BP 131/55
--- NOTE | 2020-04-23 15:46 | NUR ---
Gave d/c instructions to ALYSSA Oconnor at [facility] for suture removal after dyalisis session.
== END 2020-04-23 13:10 | disposition home or self-care (01) ==
LOC: SSTAY O 08:31
PROVIDERS: ATTEND Radiology Diagnostic Radiology
DX: T82.858A Stenosis of other vascular prosthetic devices, implants and grafts, initial encounter (principal); I25.10 Atherosclerotic heart disease of native coronary artery without angina pectoris; E11.22 Type 2 diabetes mellitus with diabetic chronic kidney disease; I12.9 Hypertensive chronic kidney disease with stage 1 through stage 4 chronic kidney disease, or unspecified chronic kidney disease; N18.9 Chronic kidney disease, unspecified; F32.9 Major depressive disorder, single episode, unspecified; Z99.2 Dependence on renal dialysis; Z87.891 Personal history of nicotine dependence; Z90.49 Acquired absence of other specified parts of digestive tract; Z98.890 Other specified postprocedural states; Z72.89 Other problems related to lifestyle; Z91.018 Allergy to other foods; Z88.8 Allergy status to other drugs, medicaments and biological substances; Z86.73 Personal history of transient ischemic attack (TIA), and cerebral infarction without residual deficits; Z79.899 Other long term (current) drug therapy; Z79.01 Long term (current) use of anticoagulants; Z79.82 Long term (current) use of aspirin; Y83.2 Surgical operation with anastomosis, bypass or graft as the cause of abnormal reaction of the patient, or of later complication, without mention of misadventure at the time of the procedure; Y92.89 Other specified places as the place of occurrence of the external cause
CPT/HCPCS: 36415; 36902; 80048; 82948; 85025; 85610; 99152; 99153; C1725; C1769; C1894; J1644; J2250; J2310; J3010; Q9967; J3490

== ENCOUNTER 2021-04-03 06:39 | Emergency (ER) | payer MEDICARE, BC ==
[~2021-04-03] VITALS: Ht 162.6 cm; Wt 87.3 kg
[~2021-04-03 06:39] MED LIST changes: +ACET-890 PO; -ALBU8.5H8 IH; -HYDR-4383 PO; -IBUP-1984 PO; -OMEG1CAP13 PO
[2021-04-03 06:49] VITALS: BP 136/79
== END 2021-04-03 09:44 | disposition home or self-care (01) ==
LOC: ER 06:39
DX: T16.1XXA Foreign body in right ear, initial encounter (principal); I25.10 Atherosclerotic heart disease of native coronary artery without angina pectoris; E11.22 Type 2 diabetes mellitus with diabetic chronic kidney disease; I12.9 Hypertensive chronic kidney disease with stage 1 through stage 4 chronic kidney disease, or unspecified chronic kidney disease; N18.6 End stage renal disease; Z86.73 Personal history of transient ischemic attack (TIA), and cerebral infarction without residual deficits; Z86.79 Personal history of other diseases of the circulatory system; Z90.49 Acquired absence of other specified parts of digestive tract; Z99.2 Dependence on renal dialysis; Z88.6 Allergy status to analgesic agent; Z79.899 Other long term (current) drug therapy; X58.XXXA Exposure to other specified factors, initial encounter; Y93.89 Activity, other specified; Y92.89 Other specified places as the place of occurrence of the external cause; Y99.8 Other external cause status
CPT/HCPCS: 69200; 99284

== ENCOUNTER 2021-04-16 08:26 | Day surgery (SDC) | payer MEDICARE, BC ==
[~2021-04-16] VITALS: Ht 160 cm; Wt 86.3 kg
[2021-04-16] VITALS (7 sets, daily range): BP systolic 109–132; BP diastolic 49–76
[2021-04-16] MEDS ORDERED: normal saline 1000ml 1,000 ML IV SCH ×2 (08:55→14:15)
[2021-04-16] MEDS ORDERED: Tylenol PO (09:00)
[2021-04-16 09:13] LABS: BASOPHILS # (AUTO) 0.1 X10'3 (0-0.2); BASOPHILS % (AUTO) 0.5 % (0-1); EOSINOPHILS # (AUTO) 0.2 X10'3 (0-0.9); EOSINOPHILS % (AUTO) 1.8 % (0-6); HEMATOCRIT 39.7 % (42.0-52.0); HEMOGLOBIN 13.1 g/dl (14.0-17.9); LYMPHOCYTES # (AUTO) 1.4 X10'3 (1.1-4.8); LYMPHOCYTES % (AUTO) 12.9 % (21-51); MEAN CORPUSCULAR HEMOGLOBIN 33.9 PG (27.0-31.0); MEAN CORPUSCULAR VOLUME 102.9 FL (78-98); MEAN PLATELET VOLUME 8.9 FL (7.4-10.4); MONOCYTES % (AUTO) 9.3 % (2-12); NEUTROPHILS # (AUTO) 8.3 X10'3 (1.8-7.7); NEUTROPHILS % (AUTO) 75.5 % (42-75); PLATELET COUNT 241 X10'3 (140-440); RED BLOOD COUNT 3.86 X10'6 (4.70-6.10); RED CELL DISTRIBUTION WIDTH 16.1 % (11.5-14.5)
[2021-04-16 09:22] LABS: ALBUMIN 3.5 G/DL (3.4-5.0); ANION GAP 13 (8-16); BLOOD UREA NITROGEN 60 MG/DL (7-18); BUN/CREATININE RATIO 8.6 (5.4-32.0); CALCIUM 8.9 MG/DL (8.5-10.1); CHLORIDE 97 MMOL/L (99-107); CREATININE 6.98 MG/DL (0.60-1.10); GLUCOSE 151 MG/DL (70-104); POTASSIUM 4.9 MMOL/L (3.5-5.1); SODIUM 139 MMOL/L (135-145); TOTAL CARBON DIOXIDE 28.6 MMOL/L (24-32); eGFR 8 ML/MIN
[2021-04-16] MEDS ORDERED: midazolam 1 mg/ML 2ml injection ONE ×2 (12:51→13:37)
[2021-04-16] MEDS ORDERED: LIDOcaine 1%/PF 5ML 10 MG/ML VIAL ONE (12:51)
[2021-04-16] MEDS ORDERED: iohexol 300mg/ml 100ml inj. ONE (12:52)
[2021-04-16] MEDS ORDERED: fentaNYL/PF 50MCG/1 ML 2ML syringe ONE ×2 (12:52→13:38)
[2021-04-16] MEDS ORDERED: heparin 1,000 UNITS/NS 500ml 500 ML ONE (12:52)
[2021-04-16] MEDS ORDERED: heparin 1,000unit/ml 10ml vial 10 ML ONE (13:27)
--- NOTE | 2021-04-16 15:00 | NUR ---
Attempted to remove purse string AV fistula repair. Still oozing. Redressed and will wait another 30~ minutes and recheck. Addendum: 04/16/21 at 1506 by Yevgeniy Torres RN Amended: Links added.
== END 2021-04-16 16:05 | disposition home or self-care (01) ==
LOC: SSTAY O 08:26
PROVIDERS: ATTEND Radiology Vascular & Interventional Radiology
DX: T82.858A Stenosis of other vascular prosthetic devices, implants and grafts, initial encounter (principal); I25.2 Old myocardial infarction; N18.6 End stage renal disease; Z79.01 Long term (current) use of anticoagulants; Z88.8 Allergy status to other drugs, medicaments and biological substances; Z91.018 Allergy to other foods; Z79.899 Other long term (current) drug therapy; Z79.82 Long term (current) use of aspirin; Z86.73 Personal history of transient ischemic attack (TIA), and cerebral infarction without residual deficits; Z95.1 Presence of aortocoronary bypass graft; Y83.2 Surgical operation with anastomosis, bypass or graft as the cause of abnormal reaction of the patient, or of later complication, without mention of misadventure at the time of the procedure; Y92.89 Other specified places as the place of occurrence of the external cause
CPT/HCPCS: 36415; 36902; 80048; 85025; 85610; 99152; 99153; C1725; C1769; C1894; J1644; J2250; J3010; Q9967

== ENCOUNTER 2021-09-29 10:22 | Outpatient (CLI) | payer MEDICARE, BC ==
[~2021-09-29 10:22] MED LIST changes: -ACET-890 PO; +CITA-119 PO; -CITA40TA11 PO; +Tylenol PO
== END 2021-09-29 23:59 | disposition home or self-care (01) ==
LOC: CARD DIAG 10:22
PROVIDERS: ATTEND Internal Medicine Interventional Cardiology
DX: I25.5 Ischemic cardiomyopathy (principal); I35.0 Nonrheumatic aortic (valve) stenosis; I25.810 Atherosclerosis of coronary artery bypass graft(s) without angina pectoris; N18.6 End stage renal disease; Z95.1 Presence of aortocoronary bypass graft
CPT/HCPCS: 93306

== ENCOUNTER 2021-12-29 09:47 | Inpatient (IN) | payer MEDICARE, BC ==
[~2021-12-29] VITALS: Ht 162.6 cm; Wt 82.3 kg
[2021-12-29 12:08] LABS: BASOPHILS % (AUTO) 0.3 % (0-1); EOSINOPHILS # (AUTO) 0.3 X10'3 (0-0.9); EOSINOPHILS % (AUTO) 3.1 % (0-6); HEMATOCRIT 29.8 % (42.0-52.0); HEMOGLOBIN 9.6 g/dl (14.0-17.9); LYMPHOCYTES # (AUTO) 1.4 X10'3 (1.1-4.8); LYMPHOCYTES % (AUTO) 17.2 % (21-51); MEAN CORPUSCULAR HEMOGLOBIN 32.4 PG (27.0-31.0); MEAN CORPUSCULAR HGB CONC 32.2 g/dL (33.0-36.5); MEAN CORPUSCULAR VOLUME 100.5 FL (78-98); MEAN PLATELET VOLUME 8.8 FL (7.4-10.4); MONOCYTES % (AUTO) 12.7 % (2-12); NEUTROPHILS # (AUTO) 5.4 X10'3 (1.8-7.7); NEUTROPHILS % (AUTO) 66.7 % (42-75); PLATELET COUNT 241 X10'3 (140-440); RED BLOOD COUNT 2.97 X10'6 (4.70-6.10); RED CELL DISTRIBUTION WIDTH 20.9 % (11.5-14.5); WHITE BLOOD COUNT 8.1 X10'3 (4.5-11.0)
[2021-12-29 12:21] LABS: ALANINE AMINOTRANSFERASE 26 U/L (12-78); ALBUMIN/GLOBULIN RATIO 0.7 (1.1-1.5); ALKALINE PHOSPHATASE 92 IU/L (46-116); ANION GAP 9 (8-16); ASPARTATE AMINO TRANSFERASE 18 U/L (10-37); BILIRUBIN,TOTAL 0.4 MG/DL (0.1-1.0); BLOOD UREA NITROGEN 52 MG/DL (7-18); CALCIUM 8.9 MG/DL (8.5-10.1); CHLORIDE 102 MMOL/L (99-107); CREATININE 7.41 MG/DL (0.60-1.10); GLUCOSE 104 MG/DL (70-104); POTASSIUM 4.4 MMOL/L (3.5-5.1); SODIUM 142 MMOL/L (135-145); TOTAL CARBON DIOXIDE 30.9 MMOL/L (24-32); TOTAL PROTEIN 7.1 G/DL (6.4-8.2); eGFR 7 ML/MIN
[2021-12-29 12:47] LABS: ANISOCYTOSIS 3+; ELLIPTOCYTES FEW; PLATELET ESTIMATE NORMAL; TEAR DROP CELLS FEW
[2021-12-29] MEDS ORDERED: GLIP5TAB13 PO (13:30)
[2021-12-29] MEDS ORDERED: MULT-1249 PO (13:30)
[2021-12-29] MEDS ORDERED: FLO0.4C PO (13:30)
[2021-12-29] MEDS ORDERED: ASPI-611 PO (13:30)
[2021-12-29] MEDS ORDERED: ATOR-2 PO (13:30)
[2021-12-29] MEDS ORDERED: CALC667C5 PO (13:30)
[2021-12-29] MEDS ORDERED: CARV3.1244 PO (13:30)
[2021-12-29] MEDS ORDERED: LISI5TAB22 PO (13:30)
[2021-12-29] MEDS ORDERED: CITA40TA30 PO (13:30)
[2021-12-29] MEDS ORDERED: ALLO100T PO (13:30)
[2021-12-29] MEDS ORDERED: acetaminophen 325mg tablet PO PRN ×2 (14:40)
[2021-12-29] MEDS ORDERED: bisacodyl 10mg suppository rectal RC PRN (14:40)
[2021-12-29] MEDS ORDERED: HYDROcodone/acetaminophen 10/325mg tab PO PRN (14:40)
[2021-12-29] MEDS ORDERED: magnesium hydroxide 30ml (MOM) UD suspension PO PRN (14:40)
[2021-12-29] MEDS ORDERED: potassium CL 10mEq/100ml bag 100 ML IV PRN (14:40)
[2021-12-29] MEDS ORDERED: magnesium 2GM in 50ml NS 50 ML IV PRN (14:40)
[2021-12-29] MEDS: normal saline 1000ml 1,000 ML IV SCH ×2 (14:40→22:57)
[2021-12-29] MEDS ORDERED: PERFLUTREN PROTEIN-A MICROSPHR (Optison) 0.22 MG/ML 3ML VIAL IV ONE (14:40)
[2021-12-29] MEDS ORDERED: mag hydrox/Alum hydrox/simeth 30ml oral suspension PO PRN (14:40)
[2021-12-29] MEDS ORDERED: magnesium Cl slow-release 64mg tablet PO PRN (14:40)
[2021-12-29] MEDS ORDERED: HYDROcodone/acetaminophen 5mg/325mg tablet PO PRN (14:40)
[2021-12-29] MEDS ORDERED: acetaminophen 650mg rectal suppository RC PRN (14:40)
[2021-12-29] MEDS ORDERED: ondansetron 4mg rapidly disintigrating tab PO PRN (14:40)
[2021-12-29] MEDS ORDERED: magnesium 4gm in 100ml NS 100 ML IV PRN (14:40)
[2021-12-29] MEDS ORDERED: ondansetron/PF 4mg/2ml inj IV PRN (14:40)
[2021-12-29] MEDS ORDERED: potassium Cl 20 mEq SR tablet PO PRN ×2 (14:40)
[2021-12-29] MEDS ORDERED: glucagon, human recombinant 1mg kit SUBCUT PRN (14:55)
[2021-12-29] MEDS ORDERED: DEXTROSE 15 GM of carb/4 tabs (each vial/BOTTLE has 4 tablets) PO PRN ×2 (14:55)
[2021-12-29] MEDS ORDERED: MESSAGE TO PHARMACY PO ONE (14:55)
[2021-12-29] MEDS ORDERED: insulin Lispro (HumaLOG) vial - multi-dose SQ SCH (14:55)
[2021-12-29] MEDS ORDERED: dextrose 50%-water 50ml dispensing syringe IV PRN ×2 (14:55)
[2021-12-29 15:20] LABS: HEMOGLOBIN A1C 5.3 % (4.5-6.2)
[2021-12-29 15:33] LABS: MAGNESIUM 2.1 MG/DL (1.5-2.4)
[2021-12-29] MEDS: K and/or MAG REPLACEMENT MC SCH (20:00)
[2021-12-29] MEDS: calcium acetate 667mg (PhosLO) capsule PO SCH (20:45)
[2021-12-29] MEDS: carVEDilol 3.125mg tablet PO SCH (20:46)
--- NOTE | 2021-12-29 20:57 | NUR ---
received report on phone. waiting for pt arrival Addendum: 12/29/21 at 2056 by Rudy Wolff RN Amended: Links added.
[2021-12-29] MEDS ORDERED: temazepam 15mg capsule PO PRN (21:00)
--- NOTE | 2021-12-29 21:56 | NUR ---
oriented to room and routine. amb ad milena in room l[facility] ed[facility]ardo well. lung clear occ elisabet=gh no sob at this time. bs active. csm wnl shunt left arm Addendum: 12/29/21 at 2156 by Rudy Wolff RN Amended: Links added.
[2021-12-29] MEDS: insulin glargine (Lantus) pen - multi-dose SQ SCH (22:08)
[2021-12-29 22:55] VITALS: BP 131/58
[2021-12-29] MEDS: lisinopril 10 MG tablet PO SCH (22:56)
--- NOTE | 2021-12-29 23:11 | NUR ---
covid booster 07/23/21 moderna Addendum: 12/29/21 at 2312 by Rudy Wolff RN Amended: Links added.
[2021-12-30] VITALS (14 sets, daily range): BP systolic 94–151; BP diastolic 36–65
[2021-12-30 06:06] LABS: BASOPHILS % (AUTO) 0.6 % (0-1); EOSINOPHILS # (AUTO) 0.3 X10'3 (0-0.9); EOSINOPHILS % (AUTO) 4.2 % (0-6); HEMATOCRIT 28.4 % (42.0-52.0); HEMOGLOBIN 9.1 g/dl (14.0-17.9); LYMPHOCYTES # (AUTO) 1.5 X10'3 (1.1-4.8); LYMPHOCYTES % (AUTO) 22.2 % (21-51); MEAN CORPUSCULAR HEMOGLOBIN 32.3 PG (27.0-31.0); MEAN CORPUSCULAR HGB CONC 32.1 g/dL (33.0-36.5); MEAN CORPUSCULAR VOLUME 100.6 FL (78-98); MEAN PLATELET VOLUME 8.9 FL (7.4-10.4); MONOCYTES # (AUTO) 0.9 X10'3 (0-0.9); MONOCYTES % (AUTO) 13.9 % (2-12); NEUTROPHILS % (AUTO) 59.1 % (42-75); PLATELET COUNT 222 X10'3 (140-440); RED BLOOD COUNT 2.82 X10'6 (4.70-6.10); RED CELL DISTRIBUTION WIDTH 20.8 % (11.5-14.5); WHITE BLOOD COUNT 6.8 X10'3 (4.5-11.0)
--- NOTE | 2021-12-30 06:08 | NUR ---
SKIN IS CLEAR, Addendum: 12/30/21 at 0608 by Rudy Wolff RN Amended: Links added.
[2021-12-30 06:16] LABS: ALANINE AMINOTRANSFERASE 23 U/L (12-78); ALBUMIN 2.7 G/DL (3.4-5.0); ALBUMIN/GLOBULIN RATIO 0.7 (1.1-1.5); ALKALINE PHOSPHATASE 86 IU/L (46-116); ANION GAP 9 (8-16); ASPARTATE AMINO TRANSFERASE 16 U/L (10-37); BILIRUBIN,TOTAL 0.4 MG/DL (0.1-1.0); BLOOD UREA NITROGEN 61 MG/DL (7-18); BUN/CREATININE RATIO 7.1 (5.4-32.0); CALCIUM 8.4 MG/DL (8.5-10.1); CHLORIDE 103 MMOL/L (99-107); CHOL/HDL RATIO 1.9 (0.00-4.99); CHOLESTEROL 102 MG/DL (0-200); CREATININE 8.54 MG/DL (0.60-1.10); GLUCOSE 91 MG/DL (70-104); HDL CHOLESTEROL 55 MG/DL (35-60); LDL CHOLESTEROL 35 MG/DL (50-100); MAGNESIUM 2.1 MG/DL (1.5-2.4); POTASSIUM 4.4 MMOL/L (3.5-5.1); SODIUM 141 MMOL/L (135-145); TOTAL CARBON DIOXIDE 28.9 MMOL/L (24-32); TOTAL PROTEIN 6.6 G/DL (6.4-8.2); TRIGLYCERIDES 91 MG/DL (20-135); eGFR 6 ML/MIN
--- NOTE | 2021-12-30 06:26 | NUR ---
Problems reprioritized. Patient report given, questions answered & plan of care reviewed with ALYSSA Kapadia. Addendum: 12/30/21 at 0626 by Rudy Wolff RN Amended: Links added.
[2021-12-30] MEDS: tamsulosin 0.4mg capsule PO SCH (07:44)
[2021-12-30] MEDS: multivitamins, therapeutics tablet PO SCH (07:44)
[2021-12-30] MEDS: pantoprazole 40mg Tablet.DR PO SCH (07:44)
[2021-12-30] MEDS: carVEDilol 3.125mg tablet PO SCH ×2 (07:44→22:26)
[2021-12-30] MEDS: citalopram 20mg tablet PO SCH (07:44)
[2021-12-30] MEDS: allopurinol 100mg tablet PO SCH (07:44)
[2021-12-30] MEDS: calcium acetate 667mg (PhosLO) capsule PO SCH (07:44)
[2021-12-30] MEDS ORDERED: EPOETIN ALFA-EPBX 20,000 UNIT/ML 1 ML MDV IV ONE (08:00)
[2021-12-30] MEDS ORDERED: albumin (human) 25% 100ml IV 100 ML IV PRN (08:00)
[2021-12-30] MEDS ORDERED: heparin 1,000unit/ml 10ml vial 10 ML IV ONE (08:00)
[2021-12-30] MEDS ORDERED: heparin 1,000 units/ml 10ml inj IV ONE (08:00)
[2021-12-30] MEDS: K and/or MAG REPLACEMENT MC SCH ×2 (08:00→20:00)
--- NOTE | 2021-12-30 09:44 | NUR ---
Malnutrition/Diabetes consult: Pt admitted nausea and vomiting x 3weeks, ESRD on HD, and DM per EMR. Pt reports that his usual wt is 196lb and over the last 4 weeks he has lost some wt d/t decreased appetite, though he was still able to eat some food. Wt hx in EMR shows no significant discrepancy in wt. Pt endorsed that he at all of his breakfast today. No visual signs of muscle or fat wasting observed at bedside. No edema noted. At this time, pt does not meet minimum criteria for malnutrition. Noted A1c 5.3 well controlled, DM ed not indicated at this time. Pt currently on Renal/Carb controlled diet, d/w RN recommendation to remove Carb controll restriction if MD agreeable. Addendum: 12/30/21 at [address] Amended: Links added.
[2021-12-30] MEDS ORDERED: LIDOcaine 1% (10mg/ml) 2ml vial SQ ONE (10:20)
[2021-12-30] MEDS ORDERED: MIDAZolam 1 MG/ML 5ML VIAL ONE (15:34)
[2021-12-30] MEDS ORDERED: diphenhydrAMINE 50 mg/ml inj ONE (15:34)
[2021-12-30] MEDS ORDERED: fentaNYL/PF 50MCG/1 ML 2ML syringe ONE (15:34)
--- NOTE | 2021-12-30 16:45 | NUR ---
Patient back from GI lab alert and orient x4. Orders reviewed.
--- NOTE | 2021-12-30 18:15 | NUR ---
Patient in room PCU 3022. I have received report from ALYSSA Kapadia and had the opportunity to ask questions and assume patient care. Pt had HD today, 2L out.
[2021-12-30] MEDS: CefTRIAXone/D5W-Rocephin 1gm 50 ML IV SCH (22:27)
[2021-12-30] MEDS: lisinopril 10 MG tablet PO SCH (22:27)
[2021-12-30] MEDS: insulin glargine (Lantus) pen - multi-dose SQ SCH (22:33)
[2021-12-31] MEDS: calcium acetate 667mg (PhosLO) capsule PO SCH ×2 (01:08→07:41)
[2021-12-31 02:00] VITALS: BP 111/50
[2021-12-31 06:00] VITALS: BP 122/69
--- NOTE | 2021-12-31 06:11 | NUR ---
Problems reprioritized. Patient report given, questions answered & plan of care reviewed with ALYSSA Kapadia.
[2021-12-31 06:33] LABS: BASOPHILS % (AUTO) 0.6 % (0-1); EOSINOPHILS # (AUTO) 0.3 X10'3 (0-0.9); EOSINOPHILS % (AUTO) 4.3 % (0-6); HEMATOCRIT 28.9 % (42.0-52.0); HEMOGLOBIN 9.3 g/dl (14.0-17.9); LYMPHOCYTES # (AUTO) 1.4 X10'3 (1.1-4.8); LYMPHOCYTES % (AUTO) 20.5 % (21-51); MEAN CORPUSCULAR HEMOGLOBIN 32.2 PG (27.0-31.0); MEAN CORPUSCULAR HGB CONC 32.3 g/dL (33.0-36.5); MEAN CORPUSCULAR VOLUME 99.7 FL (78-98); MEAN PLATELET VOLUME 8.6 FL (7.4-10.4); MONOCYTES # (AUTO) 0.8 X10'3 (0-0.9); MONOCYTES % (AUTO) 11.7 % (2-12); NEUTROPHILS # (AUTO) 4.3 X10'3 (1.8-7.7); NEUTROPHILS % (AUTO) 62.9 % (42-75); PLATELET COUNT 220 X10'3 (140-440); RED CELL DISTRIBUTION WIDTH 20.5 % (11.5-14.5); WHITE BLOOD COUNT 6.9 X10'3 (4.5-11.0)
[2021-12-31 06:54] LABS: ALANINE AMINOTRANSFERASE 20 U/L (12-78); ALBUMIN 2.6 G/DL (3.4-5.0); ALBUMIN/GLOBULIN RATIO 0.7 (1.1-1.5); ALKALINE PHOSPHATASE 83 IU/L (46-116); ANION GAP 10 (8-16); ASPARTATE AMINO TRANSFERASE 13 U/L (10-37); BILIRUBIN,TOTAL 0.4 MG/DL (0.1-1.0); BLOOD UREA NITROGEN 41 MG/DL (7-18); BUN/CREATININE RATIO 6.3 (5.4-32.0); CALCIUM 8.4 MG/DL (8.5-10.1); CHLORIDE 103 MMOL/L (99-107); CREATININE 6.55 MG/DL (0.60-1.10); GLUCOSE 82 MG/DL (70-104); MAGNESIUM 1.9 MG/DL (1.5-2.4); POTASSIUM 4.6 MMOL/L (3.5-5.1); SODIUM 142 MMOL/L (135-145); TOTAL PROTEIN 6.4 G/DL (6.4-8.2); eGFR 8 ML/MIN
[2021-12-31] MEDS: CefTRIAXone/D5W-Rocephin 1gm 50 ML IV SCH (07:37)
[2021-12-31] MEDS: multivitamins, therapeutics tablet PO SCH (07:40)
[2021-12-31] MEDS: pantoprazole 40mg Tablet.DR PO SCH (07:40)
[2021-12-31] MEDS: tamsulosin 0.4mg capsule PO SCH (07:40)
[2021-12-31] MEDS: allopurinol 100mg tablet PO SCH (07:41)
[2021-12-31] MEDS: citalopram 20mg tablet PO SCH (07:41)
[2021-12-31] MEDS: carVEDilol 3.125mg tablet PO SCH (07:41)
[2021-12-31] MEDS: K and/or MAG REPLACEMENT MC SCH (08:00)
[2021-12-31 08:23] LABS: ANISOCYTOSIS 3+; ELLIPTOCYTES 1+; PLATELET ESTIMATE NORMAL
[2021-12-31 08:24] LABS: BURR CELLS FEW; POLYCHROMASIA FEW; SCHISTOCYTES FEW
[2021-12-31 11:00] VITALS: BP 98/62
[2021-12-31] MEDS ORDERED: PANT-47 PO (12:54)
--- NOTE | 2021-12-31 14:28 | NUR ---
Patient discharge home alert and orient , discharge instruction was discussed.
== END 2021-12-31 14:20 | disposition home or self-care (01) | DRG 314 ==
LOC: ER 09:48 → ED HOLD 14:49 → EDBEDREQ 19:53 → PCU 3S 20:36
PROVIDERS: ADMIT Family Medicine; ATTEND Family Medicine
PROC: 5A1D70Z Performance of Urinary Filtration, Intermittent, Less than 6 Hours Per Day (ICD-10-PCS; principal; 2021-12-30)
PROC: 0DB68ZX Excision of Stomach, Via Natural or Artificial Opening Endoscopic, Diagnostic (ICD-10-PCS; 2021-12-30)
DX: I27.20 Pulmonary hypertension, unspecified (principal); N18.6 End stage renal disease; J90 Pleural effusion, not elsewhere classified; K92.1 Melena; I12.0 Hypertensive chronic kidney disease with stage 5 chronic kidney disease or end stage renal disease; K31.89 Other diseases of stomach and duodenum; D63.8 Anemia in other chronic diseases classified elsewhere; E11.22 Type 2 diabetes mellitus with diabetic chronic kidney disease; E11.51 Type 2 diabetes mellitus with diabetic peripheral angiopathy without gangrene; E78.00 Pure hypercholesterolemia, unspecified; G47.33 Obstructive sleep apnea (adult) (pediatric); I25.10 Atherosclerotic heart disease of native coronary artery without angina pectoris; R26.2 Difficulty in walking, not elsewhere classified; R63.4 Abnormal weight loss; F32.A Depression, unspecified; R13.10 Dysphagia, unspecified; M21.371 Foot drop, right foot; Z86.73 Personal history of transient ischemic attack (TIA), and cerebral infarction without residual deficits; I25.2 Old myocardial infarction; Z87.891 Personal history of nicotine dependence; Z95.1 Presence of aortocoronary bypass graft; Z99.2 Dependence on renal dialysis; Z68.31 Body mass index [BMI] 31.0-31.9, adult; Z88.8 Allergy status to other drugs, medicaments and biological substances; Z90.49 Acquired absence of other specified parts of digestive tract; Z79.899 Other long term (current) drug therapy; Z79.82 Long term (current) use of aspirin
CPT/HCPCS: 36415; 43239; 71045; 74176; 80053; 80061; 82948; 83036; 83605; 83735; 83880; 84443; 85008; 85025; 87040; 87077; 87081; 87186; 93005; 93306; 94660; 96360; 99152; 99285; A4620; G0257; G0378; J0696; J1200; J1815; J2250; J3010; J3490; J7030; J7040; Q4081

== ENCOUNTER 2022-01-20 15:02 | Emergency (ER) | payer MEDICARE, BC ==
[~2022-01-20] VITALS: Ht 160 cm; Wt 81.4 kg
[~2022-01-20 15:02] MED LIST changes: +ALLO100T PO; -ALLO300T2 PO; -AMA1T PO; -ASPI-1265 PO; +ASPI-611 PO; +ATOR-2 PO; -ATOR80TA PO; +CALC667C5 PO; +CARV3.1244 PO; -CITA-119 PO; +CITA40TA30 PO; -CLOP75TA15 PO; +GLIP5TAB13 PO; +LISI5TAB22 PO; +MULT-1249 PO; -MULT-785 PO; -OMEG1CAP54 PO; +PANT-47 PO; -PHO667C PO; -Tylenol PO
[2022-01-20] MEDS ORDERED: ipratropium/albuterol 3ml nebule NEB ONE (15:30)
[2022-01-20] MEDS ORDERED: methylPREDNISolone sod succ 125mg/2ml vial IV ONE (15:30)
[2022-01-20 15:47] LABS: ALANINE AMINOTRANSFERASE 18 U/L (12-78); ALBUMIN 2.9 G/DL (3.4-5.0); ALBUMIN/GLOBULIN RATIO 0.6 (1.1-1.5); ALKALINE PHOSPHATASE 87 IU/L (46-116); ANION GAP 17 (8-16); ASPARTATE AMINO TRANSFERASE 23 U/L (10-37); BILIRUBIN,TOTAL 0.7 MG/DL (0.1-1.0); BLOOD UREA NITROGEN 47 MG/DL (7-18); CALCIUM 8.8 MG/DL (8.5-10.1); CHLORIDE 99 MMOL/L (99-107); GLUCOSE 175 MG/DL (70-104); POTASSIUM 5.1 MMOL/L (3.5-5.1); SODIUM 141 MMOL/L (135-145); TOTAL CARBON DIOXIDE 25.2 MMOL/L (24-32); TOTAL PROTEIN 7.6 G/DL (6.4-8.2); eGFR 8 ML/MIN
[2022-01-20] MEDS ORDERED: CefTRIAXone 2gm/NS 100ml IVPB 100 ML IV ONE (15:55)
[2022-01-20 16:17] LABS: BASOPHILS % (AUTO) 0.5 % (0-1); EOSINOPHILS # (AUTO) 0.1 X10'3 (0-0.9); HEMATOCRIT 29.1 % (42.0-52.0); HEMOGLOBIN 9.4 g/dl (14.0-17.9); LYMPHOCYTES # (AUTO) 0.7 X10'3 (1.1-4.8); LYMPHOCYTES % (AUTO) 8.2 % (21-51); MEAN CORPUSCULAR HEMOGLOBIN 31.7 PG (27.0-31.0); MEAN CORPUSCULAR HGB CONC 32.2 g/dL (33.0-36.5); MEAN CORPUSCULAR VOLUME 98.2 FL (78-98); MEAN PLATELET VOLUME 8.7 FL (7.4-10.4); MONOCYTES # (AUTO) 1.1 X10'3 (0-0.9); NEUTROPHILS # (AUTO) 6.9 X10'3 (1.8-7.7); NEUTROPHILS % (AUTO) 78.3 % (42-75); PLATELET COUNT 240 X10'3 (140-440); RED BLOOD COUNT 2.97 X10'6 (4.70-6.10); WHITE BLOOD COUNT 8.9 X10'3 (4.5-11.0)
[2022-01-20] MEDS ORDERED: ALBU6.7H9 INH (16:24)
[2022-01-20] MEDS ORDERED: AZIT250T2 PO (16:24)
[2022-01-20] MEDS ORDERED: PRED20TA PO (16:24)
[2022-01-20 17:15] VITALS: BP 125/65
== END 2022-01-20 17:16 | disposition home or self-care (01) ==
LOC: ER 15:03
DX: J44.9 Chronic obstructive pulmonary disease, unspecified (principal); J90 Pleural effusion, not elsewhere classified; R06.02 Shortness of breath; R09.02 Hypoxemia; R05.9 Cough, unspecified; I25.10 Atherosclerotic heart disease of native coronary artery without angina pectoris; E78.00 Pure hypercholesterolemia, unspecified; I25.2 Old myocardial infarction; I12.0 Hypertensive chronic kidney disease with stage 5 chronic kidney disease or end stage renal disease; N18.6 End stage renal disease; Z86.73 Personal history of transient ischemic attack (TIA), and cerebral infarction without residual deficits; Z99.2 Dependence on renal dialysis; Z90.49 Acquired absence of other specified parts of digestive tract; Z98.890 Other specified postprocedural states; Z72.89 Other problems related to lifestyle; Z88.8 Allergy status to other drugs, medicaments and biological substances; Z79.82 Long term (current) use of aspirin; Z79.2 Long term (current) use of antibiotics; Z79.899 Other long term (current) drug therapy
CPT/HCPCS: 36415; 71045; 80053; 83880; 84484; 85025; 93005; 94640; 96365; 96375; 99285; J0696; J2930; 94760